=== PATIENT | male | born 1955 | race Caucasian/White ===

== ENCOUNTER 2020-05-12 09:17 | Outpatient (REF) | payer OTHER, SELFPAY ==
[2020-05-12 10:10] LABS: MANUAL DIFF FLAG NO
[2020-05-12 10:32] LABS: Basophils Absolute Auto 0.1 X10*3/uL (0.0-0.2); Basophils Percent Auto 0.6 % (0-2); Eosinophils Absolute Auto 0.2 X10*3/uL (0.0-0.4); Eosinophils Percent Auto 2.1 % (0-4); Hematocrit 39.5 % (42-52); Hemoglobin 13.6 g/dl (14.0-18.0); Imm Gran Abs Auto 0.04 X10*3/uL (0.00-0.03); Imm Gran Pct Auto 0.4 % (0.0-0.4); Lymphocytes Absolute Auto 2.7 X10*3/uL (1.2-4.9); Lymphocytes Percent Auto 27.6 % (20-40); Mean Corpuscular HGB Conc 34.4 g/dl (31.0-36.0); Mean Corpuscular Hemoglobin 31.3 pg (27.0-33.0); Mean Corpuscular Volume 90.8 fL (80-98); Mean Platelet Volume 10.4 fL (9.4-12.4); Monocytes Percent Auto 9.7 % (2-11); Neutrophils Absolute Auto 5.9 X10*3/uL (2.0-8.3); Neutrophils Percent Auto 59.6 % (45-73); Platelet Count 203 X10*3/uL (160-400); Red Blood Count 4.35 X10*6/uL (4.60-5.80); Red Cell Distribution Width 11.6 % (11.0-16.0); White Blood Count 9.8 X10*3/uL (4.8-10.8)
[2020-05-12 11:00] LABS: Estimated Average Glucose 200 mg/dL; Hemoglobin A1c % 8.6 %
[2020-05-12 11:08] LABS: Alanine Aminotransferase 15 U/L (0-40); Albumin Level 4.3 g/dL (3.5-5.0); Alkaline Phosphatase 48 U/L (39-117); Anion Gap 13 (12-20); Aspartate Amino Transferase 17 U/L (5-37); Bilirubin Total 0.8 mg/dL (0.0-1.0); Blood Urea Nitrogen 16 mg/dL (9-16); Carbon Dioxide 28 mmol/L (22-29); Chloride 99 mmol/L (96-108); Cholesterol 123 mg/dL; Estimated Glomerular Filt Rate > 60; Glucose Fasting 170 mg/dL (60-99); HDL Cholesterol 38 mg/dL; LDL Cholesterol Calculated 60 mg/dl; Potassium 4.5 mmol/l (3.3-5.1); Sodium 135 mmol/L (135-145); Total Protein 7.2 g/dL (6.5-8.0); Triglycerides 127 mg/dL
[2020-05-12 11:14] LABS: TSH reflex Free T4 0.62 mIU/mL (0.32-4.0)
== END 2020-05-12 09:18 | disposition home or self-care (01) ==
LOC: HO.10HDL 09:17
PROVIDERS: Visit Provider Internal Medicine
DX: E11.9 Type 2 diabetes mellitus without complications (principal); E78.00 Pure hypercholesterolemia, unspecified; I10 Essential (primary) hypertension; K21.9 Gastro-esophageal reflux disease without esophagitis; E66.9 Obesity, unspecified
CPT/HCPCS: 36415; 80053; 80061; 83036; 84443; 85025

== ENCOUNTER → 2020-06-02 09:55 | Outpatient (BNVA) | payer OTHER, SELFPAY | PROVIDERS: PCP Internal Medicine; Visit Provider Surgery | DX: Z76.89 Persons encountering health services in other specified circumstances (principal) ==

== ENCOUNTER 2020-09-29 09:25 | Outpatient (REF) | payer OTHER, SELFPAY ==
[2020-09-29 10:17] LABS: MANUAL DIFF FLAG NO
[2020-09-29 10:28] LABS: Basophils Absolute Auto 0.1 X10*3/uL (0.0-0.2); Eosinophils Absolute Auto 0.2 X10*3/uL (0.0-0.4); Eosinophils Percent Auto 2.3 % (0-4); Hematocrit 39.9 % (42-52); Hemoglobin 13.8 g/dl (14.0-18.0); Imm Gran Abs Auto 0.04 X10*3/uL (0.00-0.03); Imm Gran Pct Auto 0.4 % (0.0-0.4); Lymphocytes Absolute Auto 2.7 X10*3/uL (1.2-4.9); Lymphocytes Percent Auto 27.7 % (20-40); Mean Corpuscular HGB Conc 34.6 g/dl (31.0-36.0); Mean Corpuscular Hemoglobin 30.8 pg (27.0-33.0); Mean Corpuscular Volume 89.1 fL (80-98); Mean Platelet Volume 10.2 fL (9.4-12.4); Neutrophils Absolute Auto 5.7 X10*3/uL (2.0-8.3); Neutrophils Percent Auto 58.6 % (45-73); Platelet Count 212 X10*3/uL (160-400); Red Blood Count 4.48 X10*6/uL (4.60-5.80); Red Cell Distribution Width 11.6 % (11.0-16.0); White Blood Count 9.7 X10*3/uL (4.8-10.8)
[2020-09-29 11:04] LABS: Glucose Urine UA NEG (NEG); Leukocyte Esterase Urine NEG (NEG); Nitrite Urine NEG (NEG); PH 5.5 (5.0-8.0); Urine Blood TRACE (NEG); Urine Ketones NEG (NEG); Urine Protein NEG (NEG-TRACE)
[2020-09-29 11:10] LABS: Appearance Urine CLEAR; Color Urine YELLOW
[2020-09-29 11:19] LABS: Creatinine Urine 118.41 mg/dL; Microalbum/Creatinine Ratio Ur 10.9 ug/mg cr
[2020-09-29 11:33] LABS: TSH reflex Free T4 0.48 uIU/mL (0.32-4.0)
[2020-09-29 11:41] LABS: Alanine Aminotransferase 17 U/L (0-40); Albumin Level 4.5 g/dL (3.5-5.0); Alkaline Phosphatase 49 U/L (39-117); Anion Gap 10 (12-20); Aspartate Amino Transferase 17 U/L (5-37); Bilirubin Total 0.7 mg/dL (0.0-1.0); Blood Urea Nitrogen 17 mg/dL (9-16); Calcium 9.2 mg/dL (8.4-10.2); Carbon Dioxide 30 mmol/L (22-29); Chloride 101 mmol/L (96-108); Cholesterol 138 mg/dL; Estimated Glomerular Filt Rate 56; Glucose Fasting 209 mg/dL (60-99); HDL Cholesterol 38 mg/dL; LDL Cholesterol Calculated 67 mg/dl; Potassium 4.3 mmol/L (3.3-5.1); Sodium 137 mmol/L (135-145); Total Protein 7.3 g/dL (6.5-8.0); Triglycerides 167 mg/dL
[2020-09-29 11:56] LABS: RBC Urine 0-2 /HPF (0); WBC Urine 0 /HPF (0-4)
== END 2020-09-29 09:26 | disposition home or self-care (01) ==
LOC: HO.10HDL 09:25
PROVIDERS: Visit Provider Internal Medicine
DX: E11.9 Type 2 diabetes mellitus without complications (principal); E78.00 Pure hypercholesterolemia, unspecified; I10 Essential (primary) hypertension; K21.9 Gastro-esophageal reflux disease without esophagitis; E66.9 Obesity, unspecified
CPT/HCPCS: 36415; 80053; 80061; 81001; 81003; 82043; 84443; 85025

== ENCOUNTER → 2020-12-19 10:54 | Outpatient (BNVA) | payer OTHER, SELFPAY | PROVIDERS: PCP Internal Medicine; Visit Provider Surgery ==

== ENCOUNTER → 2020-12-22 11:01 | Outpatient (BNVA) | payer OTHER, SELFPAY | PROVIDERS: PCP Internal Medicine; Visit Provider Surgery ==

== ENCOUNTER 2020-12-30 08:18 | Outpatient (REF) | payer OTHER, SELFPAY ==
--- NOTE | ~2020-12-30 | XR_ITS ---
EXAMINATION: RIGHT HIP, RIGHT ELBOW AND RIGHT SHOULDER. CLINICAL INFORMATION: Right hip pain, right elbow pain, and right shoulder pain. COMPARISON: None TECHNIQUE: 2 views right hip. 3 views right elbow. 4 views right shoulder. FINDINGS: RIGHT HIP: The right hip joint space is maintained. There is periarticular osteophytosis. Hypertrophic bony changes are seen along the greater trochanter. No visible acute fracture or dislocation seen. The soft tissues are normal. RIGHT ELBOW: The joint space is maintained normally. There is a moderate enthesophyte along the lateral epicondyle. No loose bodies, bony erosive changes, acute fracture or dislocation seen. RIGHT SHOULDER: There is decrease in right AC joint and right glenohumeral joint space with periarticular spurring. No visible acute fracture, dislocation or subluxation seen. The soft tissues are normal. XR/XR shoulder RT min 2V IMPRESSION: No acute fracture or dislocation of the right hip. Hypertrophic bony changes/enthesophytes along the right greater trochanter and lateral acetabulum. Right lateral epicondyle enthesophyte likely previous injury. No acute fracture or dislocation in right elbow. 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 No visible acute fracture or dislocation.
--- NOTE | ~2020-12-30 | XR_ITS ---
EXAMINATION: RIGHT HIP, RIGHT ELBOW AND RIGHT SHOULDER. CLINICAL INFORMATION: Right hip pain, right elbow pain, and right shoulder pain. COMPARISON: None TECHNIQUE: 2 views right hip. 3 views right elbow. 4 views right shoulder. FINDINGS: RIGHT HIP: The right hip joint space is maintained. There is periarticular osteophytosis. Hypertrophic bony changes are seen along the greater trochanter. No visible acute fracture or dislocation seen. The soft tissues are normal. RIGHT ELBOW: The joint space is maintained normally. There is a moderate enthesophyte along the lateral epicondyle. No loose bodies, bony erosive changes, acute fracture or dislocation seen. RIGHT SHOULDER: There is decrease in right AC joint and right glenohumeral joint space with periarticular spurring. No visible acute fracture, dislocation or subluxation seen. The soft tissues are normal. XR/XR elbow RT min 3V IMPRESSION: No acute fracture or dislocation of the right hip. Hypertrophic bony changes/enthesophytes along the right greater trochanter and lateral acetabulum. Right lateral epicondyle enthesophyte likely previous injury. No acute fracture or dislocation in right elbow. 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 No visible acute fracture or dislocation.
--- NOTE | ~2020-12-30 | XR_ITS ---
EXAMINATION: RIGHT HIP, RIGHT ELBOW AND RIGHT SHOULDER. CLINICAL INFORMATION: Right hip pain, right elbow pain, and right shoulder pain. COMPARISON: None TECHNIQUE: 2 views right hip. 3 views right elbow. 4 views right shoulder. FINDINGS: RIGHT HIP: The right hip joint space is maintained. There is periarticular osteophytosis. Hypertrophic bony changes are seen along the greater trochanter. No visible acute fracture or dislocation seen. The soft tissues are normal. RIGHT ELBOW: The joint space is maintained normally. There is a moderate enthesophyte along the lateral epicondyle. No loose bodies, bony erosive changes, acute fracture or dislocation seen. RIGHT SHOULDER: There is decrease in right AC joint and right glenohumeral joint space with periarticular spurring. No visible acute fracture, dislocation or subluxation seen. The soft tissues are normal. XR/XR hip RT min 2V IMPRESSION: No acute fracture or dislocation of the right hip. Hypertrophic bony changes/enthesophytes along the right greater trochanter and lateral acetabulum. Right lateral epicondyle enthesophyte likely previous injury. No acute fracture or dislocation in right elbow. 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 No visible acute fracture or dislocation.
[2020-12-30 10:19] LABS: MANUAL DIFF FLAG NO
[2020-12-30 10:28] LABS: Basophils Absolute Auto 0.1 X10*3/uL (0.0-0.2); Basophils Percent Auto 0.8 % (0-2); Eosinophils Absolute Auto 0.3 X10*3/uL (0.0-0.4); Eosinophils Percent Auto 3.2 % (0-4); Hematocrit 36.6 % (42-52); Hemoglobin 12.3 g/dl (14.0-18.0); Imm Gran Abs Auto 0.03 X10*3/uL (0.00-0.03); Imm Gran Pct Auto 0.4 % (0.0-0.4); Lymphocytes Absolute Auto 2.7 X10*3/uL (1.2-4.9); Mean Corpuscular HGB Conc 33.6 g/dl (31.0-36.0); Mean Corpuscular Hemoglobin 30.8 pg (27.0-33.0); Mean Corpuscular Volume 91.5 fL (80-98); Mean Platelet Volume 10.5 fL (9.4-12.4); Monocytes Absolute Auto 0.8 X10*3/uL (0.1-1.2); Neutrophils Absolute Auto 4.6 X10*3/uL (2.0-8.3); Neutrophils Percent Auto 54.6 % (45-73); Platelet Count 199 X10*3/uL (160-400); Red Cell Distribution Width 11.9 % (11.0-16.0); White Blood Count 8.5 X10*3/uL (4.8-10.8)
[2020-12-30 10:57] LABS: Alanine Aminotransferase 19 U/L (0-40); Albumin Level 4.4 g/dL (3.5-5.0); Alkaline Phosphatase 51 U/L (39-117); Anion Gap 13 (12-20); Aspartate Amino Transferase 19 U/L (5-37); Bilirubin Total 0.3 mg/dL (0.0-1.0); Blood Urea Nitrogen 13 mg/dL (9-16); Calcium 9.5 mg/dL (8.4-10.2); Carbon Dioxide 26 mmol/L (22-29); Chloride 104 mmol/L (96-108); Cholesterol 137 mg/dL; Estimated Glomerular Filt Rate > 60; Glucose Fasting 188 mg/dL (60-99); HDL Cholesterol 40 mg/dL; LDL Cholesterol Calculated 75 mg/dl; Potassium 4.6 mmol/L (3.3-5.1); Sodium 138 mmol/L (135-145); Total Protein 7.1 g/dL (6.5-8.0); Triglycerides 112 mg/dL
[2020-12-30 11:18] LABS: TSH reflex Free T4 0.51 uIU/mL (0.32-4.0)
[2020-12-30 13:46] LABS: Glucose Urine UA NEG (NEG); Leukocyte Esterase Urine NEG (NEG); Nitrite Urine NEG (NEG); PH 5.5 (5.0-8.0); Urine Blood NEG (NEG); Urine Ketones NEG (NEG); Urine Protein NEG (NEG-TRACE)
[2020-12-30 13:53] LABS: Creatinine Urine 59.94 mg/dL; Microalbumin Urine < 5.0 mg/L
[2020-12-30 13:59] LABS: Appearance Urine CLEAR; Color Urine YELLOW
== END 2020-12-30 08:19 | disposition home or self-care (01) ==
LOC: HO.10HDL 08:18
PROVIDERS: PCP Internal Medicine; Visit Provider Internal Medicine
DX: M25.551 Pain in right hip (principal); M25.521 Pain in right elbow; M25.511 Pain in right shoulder; E11.9 Type 2 diabetes mellitus without complications; E78.00 Pure hypercholesterolemia, unspecified; I10 Essential (primary) hypertension; K21.9 Gastro-esophageal reflux disease without esophagitis; E66.9 Obesity, unspecified
CPT/HCPCS: 36415; 73030; 73080; 73502; 80053; 80061; 81003; 82043; 84443; 85025

== ENCOUNTER 2021-01-06 07:09 | Day surgery (SDC) | payer OTHER, SELFPAY ==
[2020-12-30 13:24] VITALS: BMI 29.7
--- NOTE | 2021-01-06 07:26 | P.CONAN_ITS ---
COUNT INCLUDES THE [facility] Active Problems Active Problems: All Active Problems (Updated 12/30/20 @ 13:24 by Mandy banegas) Annual physical exam (Acute) Overweight (BMI 25.0-29.9) (Acute) Family history of ovarian cancer (Acute) History of adenomatous polyp of colon (Acute) Tubular adenoma of colon (Acute) Hip pain (Acute) Elbow pain (Acute) Shoulder pain (Acute) Obesity (BMI 30-39.9) (Acute) Erectile dysfunction (Acute) Gall bladder stones (Acute) GERD without esophagitis (Acute) Pure hypercholesterolemia (Acute) Benign essential hypertension (Acute) Type 2 diabetes mellitus without complication, with no history of insulin use (Acute) Past Medical History Medical History (Updated 12/30/20 @ 13:24 by Mandy Owen) Benign essential hypertension Elbow pain Erectile dysfunction Family history of ovarian cancer Gall bladder stones GERD without esophagitis Hip pain History of adenomatous polyp of colon History of anxiety History of panic attacks Obesity (BMI 30-39.9) Overweight (BMI 25.0-29.9) Pure hypercholesterolemia Shoulder pain Tubular adenoma of colon Type 2 diabetes mellitus without complication, with no history of insulin use Family History Family History Father Cirrhosis Cancer Mother Ovarian cancer Surgical History Surgical History (Updated 12/30/20 @ 13:24 by Mandy Owen) History of bilateral cataract extraction History of colonoscopy History of shoulder surgery Social History Social History Housing: House Are you a primary career representative to a significant other at home: No Do you presently have visiting nurse or other home services: No Alcohol intake: current Alcohol intake frequency: holidays/special occasions only Alcohol type: beer Patient Tobacco Use Status: Never used Tobacco Second Hand Smoke Exposure: No Use of substances other than those prescribed or required for medical reasons: No Have you been hit, kicked, punched, or otherwise hurt by someone within the past year? 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 [employer] Allergies Allergy/AdvReac Type Severity Reaction Status Date / Time morphine [MORPHINE] AdvReac Intermediate NAUSEA Verified 12/29/20 09:32 lisinopril [LISINOPRIL] AdvReac Mild COUGH Verified 12/29/20 09:32 metformin [Glucophage] AdvReac Unknown Diarrhea Verified 01/06/21 07:19 Home Medications Medication Instructions Recorded Confirmed Last Taken Type glyburide 5 mg tablet 5 mg PO BID 05/17/20 12/30/20 Unknown History losartan 100 1 tab PO DAILY 05/17/20 12/30/20 Unknown History mg-hydrochlorothiazide 12.5 mg tablet metformin 500 mg tablet 1,000 mg PO BID tab 05/17/20 01/06/21 01/05/21 08:00 History rosuvastatin 10 mg tablet 10 mg PO BEDTIME 05/17/20 12/30/20 Unknown History Exam Exam Date and Time: January 06, 2021 0726 Height,Weight and Vital Signs: Height 5 ft 7 in Weight 86.183 kg Airway Mallampati Class: II TM Dist: >3cm Neck ROM: Full Heart: rrr Lungs: cta Assessment and Plan Assessment Anesthesia Assessment: Anesthesia Plan Discussed and Chart Reviewed Final Anesthetic Review NPO: Yes ASA Class: III Final Preanesthetic Review: No Changes in Pt Med Stat and Consent Obtained/Reviewed Patient Risk: Intermediate Procedure Risk: Intermediate Anesthetic Plan Anesthetic Plan: MAC: Disposition: Standard PACU
[2021-01-06 07:33] VITALS: BP 185/83; PULSE 82; RESP 16; TEMP 36.4; O2SAT 98
[2021-01-06] MEDS: Lactated Ringers 1,000 ML 50 ML IVCONT (07:55)
--- NOTE | 2021-01-06 08:09 | MHC.SHP ---
Pre-Procedural Eval Section A Date of Service: 01/06/21 Section B Chief Complaint: History of adenomatous polyp of colon Allergies: Allergies Allergy/AdvReac Type Severity Reaction Status Date / Time morphine [MORPHINE] AdvReac Intermediate NAUSEA Verified 12/29/20 09:32 lisinopril [LISINOPRIL] AdvReac Mild COUGH Verified 12/29/20 09:32 metformin [Glucophage] AdvReac Unknown Diarrhea Verified 01/06/21 07:19 Plan I have reviewed the history and physical and performed a pertinent physical examination on my patient. No changes have occurred unless specified.
[2021-01-06 08:34] LABS: Glucose, Whole Blood 111 mg/dL (60-115)
--- NOTE | 2021-01-06 08:34 | W.PM.OPN ---
Operative Note Operative Note Date of Service: 01/06/21 Narrative: Preop diagnosis: History of tubular adenomas Postop diagnose: Small polyp, about 2-3 mm in the right colon Procedure: Colonoscopy with polypectomy using cold snare Surgeon: Mitesh Nino MD 66-year-old male with a history of multiple tubular adenomas in the past, here for follow-up colonoscopy. He understood the technique of the procedure. He was aware of the risks, benefits, and alternatives. He was brought to the operating room and placed in left lateral decubitus position under monitored anesthesia care. A surgical time-out was done. Full digital rectal was done and there was no palpable internal lesions but the tip of the Olympus colonoscope was gently introduced through the anal orifice and advanced with insufflation all the way to the cecum. The cecum was intubated. The cecum was identified by visualization of the ileocecal valve as well as the appendiceal orifice. The cecal mucosa was unremarkable. The scope was gradually withdrawn with careful examination of the entire colonic mucosa being done with scope withdrawal. The patient had good bowel prep so it was unlikely that any lesion may have been missed. In the proximal right colon, there was note of a small polyp about 2-3 mm size. There was removed using a cold forceps. We continued to withdraw the scope all the way to the rectum. There were no lesions seen. There were no polyps that were seen. The anal canal and anal shelf for unremarkable. The scope was then withdrawn completely with desufflation The patient tolerated procedure well. There were no complication noted. We will await for the path report for this small polyp. In view of his multiple polyps in the past, I would likely recommend another colonoscopy within 5 years.
[2021-01-06 08:35] VITALS: BP 100/60; PULSE 70; RESP 16; TEMP 36.3; O2SAT 95
--- NOTE | 2021-01-06 08:37 | P.BOP_ITS ---
Brief Operative Note Date of Service: 01/06/21 Pre-op diagnosis: Preop diagnosis: History of tubular adenomas Post-op diagnosis: other (Small polyp in the right colon) Procedure: Colonoscopy with polypectomy using cold forceps Surgeon: Mitesh Nino MD Anesthesia: MAC Was an Gravel Machine Operator used for this Procedure?: No Estimated blood loss (mL): 0 Pathology: other (Small polyp) Condition: stable Disposition: PACU
[2021-01-06 08:50] VITALS: BP 129/70; PULSE 75; RESP 16; TEMP 36.3; O2SAT 98
== END 2021-01-06 09:00 | disposition home or self-care (01) ==
PROVIDERS: PCP Internal Medicine; Visit Provider Surgery
PROC: 0DJD8ZZ Inspection of Lower Intestinal Tract, Via Natural or Artificial Opening Endoscopic (ICD-10-PCS; CPT 45378; principal; 2021-01-06 08:30)
DX: Z12.11 Encounter for screening for malignant neoplasm of colon (principal); Z86.010 Personal history of colon polyps; K21.9 Gastro-esophageal reflux disease without esophagitis; I10 Essential (primary) hypertension; E11.9 Type 2 diabetes mellitus without complications; Z79.84 Long term (current) use of oral hypoglycemic drugs; Z79.899 Other long term (current) drug therapy; Z88.8 Allergy status to other drugs, medicaments and biological substances; Z80.41 Family history of malignant neoplasm of ovary
CPT/HCPCS: 45380; 82947; 88305

== ENCOUNTER → 2021-01-18 11:44 | Outpatient (BNVA) | payer OTHER, SELFPAY | PROVIDERS: PCP Internal Medicine; Visit Provider Surgery ==

== ENCOUNTER → 2021-01-23 13:44 | Outpatient (BNVA) | payer OTHER, SELFPAY | PROVIDERS: PCP Internal Medicine; Referring Provider Internal Medicine; Visit Provider Surgery ==

== ENCOUNTER 2021-05-01 11:15 | Outpatient (REF) | payer OTHER, SELFPAY ==
[2021-05-01 13:40] LABS: MANUAL DIFF FLAG NO
[2021-05-01 13:49] LABS: Basophils Absolute Auto 0.1 X10*3/uL (0.0-0.2); Basophils Percent Auto 0.7 % (0-2); Eosinophils Absolute Auto 0.1 X10*3/uL (0.0-0.4); Eosinophils Percent Auto 1.7 % (0-4); Hematocrit 38.9 % (42-52); Imm Gran Abs Auto 0.02 X10*3/uL (0.00-0.03); Imm Gran Pct Auto 0.3 % (0.0-0.4); Lymphocytes Absolute Auto 2.7 X10*3/uL (1.2-4.9); Lymphocytes Percent Auto 35.8 % (20-40); Mean Corpuscular HGB Conc 33.4 g/dl (31.0-36.0); Mean Corpuscular Hemoglobin 30.1 pg (27.0-33.0); Mean Platelet Volume 10.7 fL (9.4-12.4); Monocytes Absolute Auto 0.8 X10*3/uL (0.1-1.2); Monocytes Percent Auto 10.8 % (2-11); Neutrophils Absolute Auto 3.8 X10*3/uL (2.0-8.3); Neutrophils Percent Auto 50.7 % (45-73); Platelet Count 221 X10*3/uL (160-400); Red Blood Count 4.32 X10*6/uL (4.60-5.80); Red Cell Distribution Width 11.9 % (11.0-16.0); White Blood Count 7.4 X10*3/uL (4.8-10.8)
[2021-05-01 14:01] LABS: Estimated Average Glucose 189 mg/dL; Hemoglobin A1c % 8.2 %
[2021-05-01 14:03] LABS: Alanine Aminotransferase 17 U/L (0-40); Albumin Level 4.4 g/dL (3.5-5.0); Alkaline Phosphatase 46 U/L (39-117); Anion Gap 13 (12-20); Aspartate Amino Transferase 24 U/L (5-37); Bilirubin Total 0.6 mg/dL (0.0-1.0); Blood Urea Nitrogen 15 mg/dL (9-16); Calcium 9.8 mg/dL (8.4-10.2); Carbon Dioxide 28 mmol/L (22-29); Chloride 101 mmol/L (96-108); Cholesterol 135 mg/dL; Estimated Glomerular Filt Rate 55; Glucose Fasting 153 mg/dL (60-99); HDL Cholesterol 41 mg/dL; LDL Cholesterol Calculated 76 mg/dl; Potassium 4.8 mmol/L (3.3-5.1); Sodium 137 mmol/L (135-145); Total Protein 7.4 g/dL (6.5-8.0); Triglycerides 92 mg/dL
[2021-05-01 14:24] LABS: Prostate Specific Antigen 0.94 ng/mL (<0.05-4.0); TSH reflex Free T4 0.82 uIU/mL (0.32-4.0)
== END 2021-05-01 11:16 | disposition home or self-care (01) ==
LOC: HO.10HDL 11:15
PROVIDERS: Visit Provider Internal Medicine
DX: Z00.00 Encounter for general adult medical examination without abnormal findings (principal); Z12.5 Encounter for screening for malignant neoplasm of prostate; E66.3 Overweight; E78.00 Pure hypercholesterolemia, unspecified; N40.0 Benign prostatic hyperplasia without lower urinary tract symptoms; E11.9 Type 2 diabetes mellitus without complications; I10 Essential (primary) hypertension; K80.20 Calculus of gallbladder without cholecystitis without obstruction; K21.9 Gastro-esophageal reflux disease without esophagitis
CPT/HCPCS: 36415; 80053; 80061; 83036; 84153; 84443; 85025

== ENCOUNTER 2021-11-06 08:25 | Outpatient (REF) | payer OTHER, SELFPAY ==
[2021-11-06 10:52] LABS: MANUAL DIFF FLAG NO
[2021-11-06 11:09] LABS: Basophils Absolute Auto 0.1 X10*3/uL (0.0-0.2); Basophils Percent Auto 0.7 % (0-2); Eosinophils Absolute Auto 0.2 X10*3/uL (0.0-0.4); Eosinophils Percent Auto 1.9 % (0-4); Hematocrit 39.2 % (42.0-52.0); Hemoglobin 13.3 g/dl (14.0-18.0); Imm Gran Abs Auto 0.04 X10*3/uL (0.00-0.03); Imm Gran Pct Auto 0.4 % (0.0-0.4); Lymphocytes Absolute Auto 2.8 X10*3/uL (1.2-4.9); Lymphocytes Percent Auto 30.8 % (20-40); Mean Corpuscular HGB Conc 33.9 g/dl (31.0-36.0); Mean Corpuscular Hemoglobin 30.6 pg (27.0-33.0); Mean Corpuscular Volume 90.1 fL (80.0-98.0); Mean Platelet Volume 10.9 fL (9.4-12.4); Monocytes Absolute Auto 0.9 X10*3/uL (0.1-1.2); Neutrophils Absolute Auto 5.1 x10*3/uL (2.0-8.3); Neutrophils Percent Auto 56.2 % (45-73); Platelet Count 197 X10*3/uL (160-400); Red Blood Count 4.35 X10*6/uL (4.60-5.80); Red Cell Distribution Width 11.6 % (11.0-16.0); White Blood Count 9.1 X10*3/uL (4.8-10.8)
[2021-11-06 11:13] LABS: Appearance Urine CLEAR; Color Urine YELLOW; Glucose Urine UA >=1000 MG/DL (NEG); Leukocyte Esterase Urine NEG (NEG); Nitrite Urine NEG (NEG); Specific Gravity - Urine 1.015 (1.005-1.025); UACC Culture Trigger NO; Urine Blood TRACE (NEG); Urine Ketones NEG (NEG); Urine Protein NEG (NEG-TRACE)
[2021-11-06 11:17] LABS: Alanine Aminotransferase 17 U/L (0-40); Albumin Level 4.2 g/dL (3.5-5.0); Alkaline Phosphatase 51 U/L (39-117); Anion Gap 11 (12-20); Aspartate Amino Transferase 16 U/L (5-37); Bilirubin Total 0.7 mg/dL (0.0-1.0); Blood Urea Nitrogen 15 mg/dL (9-16); Calcium 9.8 mg/dL (8.4-10.2); Carbon Dioxide 29 mmol/L (22-29); Chloride 99 mmol/L (96-108); Cholesterol 132 mg/dL; Estimated Glomerular Filt Rate 51; Glucose Fasting 335 mg/dL (60-99); HDL Cholesterol 48 mg/dL; LDL Cholesterol Calculated 65 mg/dl; Potassium 4.9 mmol/L (3.3-5.1); Sodium 134 mmol/L (135-145); Total Protein 7.2 g/dL (6.5-8.0); Triglycerides 97 mg/dL
[2021-11-06 11:19] LABS: Estimated Average Glucose 289 mg/dL; Hemoglobin A1c % 11.7 %
[2021-11-06 11:32] LABS: RBC Urine 0 /HPF (0); WBC Urine 0 /HPF (0-4)
[2021-11-06 11:39] LABS: TSH reflex Free T4 0.85 uIU/mL (0.32-4.0); Vitamin D 25-OH Total 30.1 ng/mL (>30)
[2021-11-06 12:33] LABS: Creatinine Urine 75.62 mg/dL; Microalbum/Creatinine Ratio Ur 11.9 ug/mg cr
== END 2021-11-06 08:26 | disposition home or self-care (01) ==
LOC: HO.10HDL 08:25
PROVIDERS: Visit Provider Internal Medicine
DX: I10 Essential (primary) hypertension (principal); E55.9 Vitamin D deficiency, unspecified; E11.9 Type 2 diabetes mellitus without complications; K21.9 Gastro-esophageal reflux disease without esophagitis; E78.00 Pure hypercholesterolemia, unspecified
CPT/HCPCS: 36415; 80053; 80061; 81001; 82043; 82306; 83036; 84443; 85025

== ENCOUNTER 2021-12-29 09:27 | Outpatient (REF) | payer OTHER, SELFPAY ==
[2021-12-29 11:10] LABS: MANUAL DIFF FLAG NO
[2021-12-29 11:12] LABS: Appearance Urine CLEAR; Color Urine YELLOW; Glucose Urine UA NEG (NEG); Leukocyte Esterase Urine NEG (NEG); Nitrite Urine NEG (NEG); Specific Gravity - Urine 1.015 (1.005-1.025); UACC Culture Trigger NO; Urine Blood TRACE (NEG); Urine Ketones NEG (NEG); Urine Protein NEG (NEG-TRACE)
[2021-12-29 11:13] LABS: Basophils Absolute Auto 0.1 X10*3/uL (0.0-0.2); Basophils Percent Auto 0.8 % (0-2); Eosinophils Absolute Auto 0.2 X10*3/uL (0.0-0.4); Eosinophils Percent Auto 2.1 % (0-4); Hematocrit 37.1 % (42.0-52.0); Hemoglobin 12.8 g/dl (14.0-18.0); Imm Gran Abs Auto 0.03 X10*3/uL (0.00-0.03); Imm Gran Pct Auto 0.4 % (0.0-0.4); Lymphocytes Absolute Auto 2.7 X10*3/uL (1.2-4.9); Lymphocytes Percent Auto 33.3 % (20-40); Mean Corpuscular HGB Conc 34.5 g/dl (31.0-36.0); Mean Corpuscular Hemoglobin 31.1 pg (27.0-33.0); Mean Corpuscular Volume 90.3 fL (80.0-98.0); Mean Platelet Volume 9.8 fL (9.4-12.4); Monocytes Absolute Auto 0.9 X10*3/uL (0.1-1.2); Monocytes Percent Auto 10.3 % (2-11); Neutrophils Absolute Auto 4.4 x10*3/uL (2.0-8.3); Neutrophils Percent Auto 53.1 % (45-73); Platelet Count 214 X10*3/uL (160-400); Red Blood Count 4.11 X10*6/uL (4.60-5.80); Red Cell Distribution Width 11.9 % (11.0-16.0); White Blood Count 8.2 X10*3/uL (4.8-10.8)
[2021-12-29 11:35] LABS: Estimated Average Glucose 209 mg/dL; Hemoglobin A1c % 8.9 %
[2021-12-29 11:41] LABS: Alanine Aminotransferase 14 U/L (0-40); Albumin Level 4.3 g/dL (3.5-5.0); Alkaline Phosphatase 42 U/L (39-117); Anion Gap 11 (12-20); Aspartate Amino Transferase 17 U/L (5-37); Bilirubin Total 0.6 mg/dL (0.0-1.0); Blood Urea Nitrogen 13 mg/dL (9-16); Calcium 9.3 mg/dL (8.4-10.2); Carbon Dioxide 28 mmol/L (22-29); Chloride 104 mmol/L (96-108); Cholesterol 108 mg/dL; Estimated Glomerular Filt Rate > 60; Glucose Fasting 188 mg/dL (60-99); HDL Cholesterol 43 mg/dL; LDL Cholesterol Calculated 55 mg/dl; Potassium 4.7 mmol/L (3.3-5.1); Sodium 138 mmol/L (135-145); Total Protein 7.2 g/dL (6.5-8.0); Triglycerides 54 mg/dL
[2021-12-29 11:51] LABS: Mucus Urine TRACE /LPF; RBC Urine 0-2 /HPF (0); WBC Urine 0-2 /HPF (0-4)
[2021-12-29 11:59] LABS: Creatinine Urine 96.55 mg/dL; Microalbum/Creatinine Ratio Ur 7.2 ug/mg cr
[2021-12-29 12:03] LABS: TSH reflex Free T4 0.49 uIU/mL (0.32-4.0)
== END 2021-12-29 09:28 | disposition home or self-care (01) ==
LOC: HO.10HDL 09:27
PROVIDERS: Visit Provider Internal Medicine
DX: I10 Essential (primary) hypertension (principal); E55.9 Vitamin D deficiency, unspecified; E78.00 Pure hypercholesterolemia, unspecified; E11.9 Type 2 diabetes mellitus without complications
CPT/HCPCS: 36415; 80053; 80061; 81001; 82043; 82306; 83036; 84443; 85025

== ENCOUNTER 2022-04-02 08:58 | Outpatient (REF) | payer OTHER, SELFPAY ==
[2022-04-02 10:49] LABS: Estimated Average Glucose 166 mg/dL; Hemoglobin A1c % 7.4 %
[2022-04-02 11:30] LABS: Alanine Aminotransferase 18 U/L (0-40); Albumin Level 4.5 g/dL (3.5-5.0); Alkaline Phosphatase 43 U/L (39-117); Anion Gap 17 (12-20); Aspartate Amino Transferase 22 U/L (5-37); Bilirubin Total 0.6 mg/dL (0.0-1.0); Blood Urea Nitrogen 18 mg/dL (9-16); Calcium 9.9 mg/dL (8.4-10.2); Carbon Dioxide 27 mmol/L (22-29); Chloride 101 mmol/L (96-108); Cholesterol 142 mg/dL; Estimated Glomerular Filt Rate 54; Glucose Fasting 142 mg/dL (60-99); HDL Cholesterol 43 mg/dL; LDL Cholesterol Calculated 77 mg/dl; Potassium 5.6 mmol/L (3.3-5.1); Sodium 139 mmol/L (135-145); Total Protein 7.7 g/dL (6.5-8.0); Triglycerides 113 mg/dL
[2022-04-02 16:29] LABS: Appearance Urine Clear; Color Urine Yellow; Glucose Urine UA Negative (Negative); Leukocyte Esterase Urine Negative (Negative); Nitrite Urine Negative (Negative); Specific Gravity - Urine 1.015 (1.005-1.025); Urine Blood Negative (Negative); Urine Ketones Negative (Negative); Urine Protein Negative (Neg-Trace)
[2022-04-02 16:54] LABS: Creatinine Urine 92.29 mg/dL; Microalbum/Creatinine Ratio Ur 23.8 ug/mg cr
== END 2022-04-02 08:59 | disposition home or self-care (01) ==
LOC: HO.10HDL 08:58
PROVIDERS: Visit Provider Internal Medicine
DX: E78.00 Pure hypercholesterolemia, unspecified (principal); E11.9 Type 2 diabetes mellitus without complications
CPT/HCPCS: 36415; 80053; 80061; 81003; 82043; 83036

== ENCOUNTER 2022-06-18 08:49 | Outpatient (REF) | payer OTHER, SELFPAY ==
[2022-06-18 10:58] LABS: Appearance Urine Clear; Color Urine Yellow; Glucose Urine UA Negative (Negative); Leukocyte Esterase Urine Negative (Negative); Nitrite Urine Negative (Negative); Urine Blood Negative (Negative); Urine Ketones Negative (Negative); Urine Protein Negative (Neg-Trace)
[2022-06-18 12:08] LABS: Creatinine Urine 60.04 mg/dL; Microalbum/Creatinine Ratio Ur 8.3 ug/mg cr
== END 2022-06-18 08:50 | disposition home or self-care (01) ==
LOC: HO.10HDL 08:49
PROVIDERS: Visit Provider Internal Medicine
DX: Z00.00 Encounter for general adult medical examination without abnormal findings (principal); E11.9 Type 2 diabetes mellitus without complications; I10 Essential (primary) hypertension
CPT/HCPCS: 81003; 82043

== ENCOUNTER 2022-09-17 10:43 | Outpatient (REF) | payer OTHER, SELFPAY ==
[2022-09-17 13:45] LABS: Estimated Average Glucose 177 mg/dL; Hemoglobin A1c % 7.8 %
[2022-09-17 13:51] LABS: Alanine Aminotransferase 17 U/L (0-40); Albumin Level 4.4 g/dL (3.5-5.0); Alkaline Phosphatase 39 U/L (39-117); Anion Gap 16 (12-20); Aspartate Amino Transferase 20 U/L (5-37); Bilirubin Total 0.8 mg/dL (0.0-1.0); Blood Urea Nitrogen 16 mg/dL (9-16); Calcium 9.6 mg/dL (8.4-10.2); Carbon Dioxide 26 mmol/L (22-29); Chloride 103 mmol/L (96-108); Cholesterol 142 mg/dL; Estimated Glomerular Filt Rate > 60; Glucose Fasting 173 mg/dL (60-99); HDL Cholesterol 43 mg/dL; LDL Cholesterol Calculated 78 mg/dl; Potassium 4.6 mmol/L (3.3-5.1); Sodium 140 mmol/L (135-145); Total Protein 7.1 g/dL (6.5-8.0); Triglycerides 108 mg/dL
== END 2022-09-17 10:44 | disposition home or self-care (01) ==
LOC: HO.10HDL 10:43
PROVIDERS: Visit Provider Nurse Practitioner Family
DX: E78.00 Pure hypercholesterolemia, unspecified (principal); E11.9 Type 2 diabetes mellitus without complications
CPT/HCPCS: 36415; 80053; 80061; 83036

== ENCOUNTER 2022-09-17 13:23 | Outpatient (REF) | payer OTHER, SELFPAY ==
[2022-09-17 14:08] LABS: Appearance Urine Clear; Color Urine Yellow; Glucose Urine UA Negative (Negative); Leukocyte Esterase Urine Negative (Negative); Nitrite Urine Negative (Negative); PH 5.5 (5.0-9.0); Specific Gravity - Urine 1.015 (1.005-1.025); Urine Blood Negative (Negative); Urine Ketones Negative (Negative); Urine Protein Negative (Neg-Trace)
== END 2022-09-17 13:24 | disposition home or self-care (01) ==
LOC: HO.10HDLNP 13:23
PROVIDERS: Visit Provider Internal Medicine
DX: I10 Essential (primary) hypertension (principal)
CPT/HCPCS: 81003

== ENCOUNTER 2023-02-05 08:27 | Outpatient (REF) | payer OTHER, SELFPAY ==
[2023-02-05 10:36] LABS: MANUAL DIFF FLAG NO
[2023-02-05 10:48] LABS: Basophils Absolute Auto 0.1 X10*3/uL (0.0-0.2); Eosinophils Absolute Auto 0.2 X10*3/uL (0.0-0.4); Eosinophils Percent Auto 2.7 % (0-4); Hematocrit 39.4 % (42.0-52.0); Hemoglobin 13.4 g/dl (14.0-18.0); Imm Gran Abs Auto 0.03 X10*3/uL (0.00-0.03); Imm Gran Pct Auto 0.3 % (0.0-0.4); Lymphocytes Absolute Auto 3.1 X10*3/uL (1.2-4.9); Lymphocytes Percent Auto 34.7 % (20-40); Mean Corpuscular Hemoglobin 30.7 pg (27.0-33.0); Mean Corpuscular Volume 90.4 fL (80.0-98.0); Mean Platelet Volume 10.2 fL (9.4-12.4); Monocytes Absolute Auto 0.9 X10*3/uL (0.1-1.2); Monocytes Percent Auto 10.3 % (2-11); Neutrophils Absolute Auto 4.6 x10*3/uL (2.0-8.3); Platelet Count 216 X10*3/uL (160-400); Red Blood Count 4.36 X10*6/uL (4.60-5.80); Red Cell Distribution Width 11.5 % (11.0-16.0)
[2023-02-05 10:49] LABS: Appearance Urine Clear; Color Urine Yellow; Glucose Urine UA 100 mg/dL (Negative); Leukocyte Esterase Urine Negative (Negative); Nitrite Urine Negative (Negative); PH 5.5 (5.0-9.0); Urine Blood Negative (Negative); Urine Ketones Negative (Negative); Urine Protein Negative (Neg-Trace)
[2023-02-05 11:17] LABS: Estimated Average Glucose 169 mg/dL; Hemoglobin A1c % 7.5 %
[2023-02-05 11:18] LABS: Alanine Aminotransferase 18 U/L (0-40); Albumin Level 4.4 g/dL (3.5-5.0); Alkaline Phosphatase 46 U/L (39-117); Anion Gap 10 (12-20); Aspartate Amino Transferase 18 U/L (5-37); Bilirubin Total 0.6 mg/dL (0.0-1.0); Blood Urea Nitrogen 12 mg/dL (9-16); Calcium 9.9 mg/dL (8.4-10.2); Carbon Dioxide 30 mmol/L (22-29); Chloride 101 mmol/L (96-108); Cholesterol 139 mg/dL; Estimated Glomerular Filt Rate 53; Glucose Fasting 257 mg/dL (60-99); HDL Cholesterol 44 mg/dL; LDL Cholesterol Calculated 74 mg/dl; Potassium 4.7 mmol/L (3.3-5.1); Sodium 136 mmol/L (135-145); TSH reflex Free T4 0.87 uIU/mL (0.32-4.0); Total Protein 7.7 g/dL (6.5-8.0); Triglycerides 107 mg/dL; Vitamin D 25-OH Total 42.5 ng/mL (>30)
[2023-02-05 11:34] LABS: Folate 14.8 ng/mL (> or = 4.0); Vitamin B12 482 pg/mL (200-900)
[2023-02-05 11:37] LABS: Creatinine Urine 72.68 mg/dL
== END 2023-02-05 08:28 | disposition home or self-care (01) ==
LOC: HO.10HDL 08:27
PROVIDERS: Visit Provider Internal Medicine
DX: E55.9 Vitamin D deficiency, unspecified (principal); E53.8 Deficiency of other specified B group vitamins; E11.9 Type 2 diabetes mellitus without complications; I10 Essential (primary) hypertension; E78.00 Pure hypercholesterolemia, unspecified; R30.0 Dysuria
CPT/HCPCS: 36415; 80053; 80061; 81003; 82043; 82306; 82607; 82746; 83036; 84443; 85025

== ENCOUNTER 2023-02-08 10:50 | Outpatient (AMB) | payer OTHER, SELFPAY ==
[2023-02-08 10:52] VITALS: BP 138/80; PULSE 97; O2SAT 96; BMI 29.0
--- NOTE | 2023-02-08 10:52 | A.OFFPC_ITS ---
Vital Signs 02/08/23 10:52 Height 5 ft 7 in Weight 185 lb 6 oz BMI 29.0 BP 138/80 Blood Pressure Location Lt brachial Position Sitting Pulse 97 Pulse Source Pulse Oximeter Pulse Oximetry (%) 96 Oxygen Delivery Method Room Air Intake Visit Reasons: DM, hyperlipidemia Mail List Librarian Required: No Accompanied by: Self / Same As Patient Allergies morphine [MORPHINE] Adverse Reaction (Intermediate, Verified 02/08/23 11:25) NAUSEA lisinopril [LISINOPRIL] Adverse Reaction (Mild, Verified 02/08/23 11:25) COUGH metformin [Glucophage] Adverse Reaction (Unknown, Verified 02/08/23 11:25) Diarrhea Medication List - Last Reconciled 02/08/23 by Jorge Luis Nava MD blood sugar diagnostic (FreeStyle Lite Strips) As directed once a day glyburide 5 mg PO DAILY 90 days losartan-hydrochlorothiazide 100-12.5 mg 1 tab PO DAILY metformin 1,000 mg (2 x 500 mg) PO BID rosuvastatin 10 mg PO DAILY sildenafil (Viagra) 50 mg PO DAILY PRN 90 days sitagliptin phosphate (Januvia) 100 mg PO DAILY Tobacco use date assessed: 02/08/23 Fall risk assessment: No Falls in past year Last assessed Fall Risk: 02/08/23 Dental Screening Dental Screen Date: 02/08/23 Did you have a dental visit in the last 12 months?: Yes Did you have a dental problem in the last 6 months where you did not have access to dental care?: No Was dental information given to patient?: Patient has dentist HPI DM, hyperlipidemia HPI Details Patient comes in today for his follow up visit States that he currently feels okay He denies any headaches or dizziness Denies any chest pains, no SOB No nausea/vomiting, no abdominal pain No change in bowel habits noted Needs his Januvia Rx refilled Had his follow up labs done a few days ago - to discuss his results Adds that he recently had his [facility] Screening Tests done and brought in a co py of his results to go over with [facility] Medical History Benign essential hypertension Elbow pain Erectile dysfunction Family history of ovarian cancer Gall bladder stones GERD without esophagitis Hip pain History of adenomatous polyp of colon History of anxiety History of panic attacks Obesity (BMI 30-39.9) Overweight (BMI 25.0-29.9) Pure hypercholesterolemia Shingles Shoulder pain Tubular adenoma of colon Type 2 diabetes mellitus without complication, with no history of insulin use Surgical History History of bilateral cataract extraction History of colonoscopy History of shoulder surgery Family History Father Cirrhosis Cancer Mother Ovarian cancer Social History Housing: House Are you a primary acute care nurse practitioner to a significant other at home: No Do you presently have visiting nurse or other home services: No Alcohol intake: current Alcohol intake frequency: holidays/special occasions only Alcohol type: beer Patient Tobacco Use Status: Never used Tobacco e-Cigarette/Vaping Use: Never Used Second Hand Smoke Exposure: No service: Yes ([email or web address]) Current occupational status: employed 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 1. Little interest or pleasure in doing things: not at all 2. Feeling down, depressed, or hopeless: not at all 3. Trouble falling or staying asleep, or sleeping too much: not at all 4. Feeling tired or having little energy: not at all 5. Poor appetite or overeating: not at all 6. Feeling bad about yourself - or that you are a failure or have let yourself or your family down: not at all 7. Trouble concentrating on things, such as reading the newspaper or watching television: not at all 8. Moving or speaking so slowly that other people could have noticed. Or the opposite - being so fidgety or restless that you have been moving around a lot more than usual: not at all 9. Thoughts that you would be better off or of hurting yourself in some way: not at all Total score: 0 Depression Screening Interpretation: Negative 69043 - PHQ-9 Billing: Yes Source: Developed by Drs. Armando Hairston, Domenica Hurd, Raul Zamarripa and colleagues, with an educational gillian from [email or web address]. Thrive Questionnaire Date Thrive assessed: 02/08/23 I am a: Patient What is your living situation today?: I have a steady place to live Within the past 12 months, did the food you bought not last and you didn't have the money to get more?: Never true Within the past 12 months, did you worry whether your food would run out before you got money to buy more?: Never true Do you have trouble paying for medicines?: No Do you have trouble getting transportation to medical appointments?: No Do you have trouble paying your heating and electricity bill?: No Do you have trouble taking care of your child, family member or friend?: No Do you have trouble with day-to-day activities such as bathing, preparing meals, shopping, managing finances, etc.?: No Are you currently unemployed and looking for a job?: No Are you interested in more education?: No Please select the resources that you would like help with: None Currently or been in a relationship where the following occur: no concerns reported AUDIT C Alcohol Use Questionnaire (AUDIT-C) 1. How often do you have a drink containing alcohol?: Never 3. How often do you have six or more drinks on one occasion?: Never Total Score: 0 Score Reviewed/Action Taken: Yes BRENNA-7 AMB Questionnaire BRENNA-7 Date BRENNA - 7 assessed: 02/08/23 Feeling nervous, anxious, or on edge: 0 = Not at all Not being able to stop or control worryin = Not at all Worrying too much about different things: 0 = Not at all Trouble relaxin = Not at all Being so restless that it is hard to sit still: 0 = Not at all Becoming easily annoyed or irritable: 0 = Not at all Feeling afraid as if something awful might happen: 0 = Not at all Total BRENNA-7 score (0-4 normal; 5-9 mild; 10-14 moderate; 15-21 severe): 0 Source: Developed by Drs. Armando Hairston, Domenica Hurd, Raul Zamarripa and colleagues, with an educational gillian from [email or web address]. Review of Systems Const Denies chills, Denies fatigue, Denies fever(s) and Denies headache(s) ENT Denies dysphagia, Denies dizziness, Denies otalgia, Denies headache(s), Denies neck pain and Denies sore throat Card Denies chest pain, Denies palpitations and Denies dyspnea Resp Denies cough, Denies dyspnea and Denies wheezing GI Denies abdominal pain, Denies constipation, Denies dysphagia, Denies heartburn, Denies diarrhea, Denies nausea and Denies vomiting Denies dysuria, Denies nocturia and Denies urinary frequency Musc Denies back pain, Reports arthralgias (on and off in the right shoulder, mostly mild), Denies joint swelling and Denies neck pain Neuro Denies dizziness and Denies headache(s) Endo Denies fatigue and Denies palpitations Aller/Immun Denies wheezing Physical exam (Primary Care) Vital Signs: Last Vital Signs Pulse 97 02/08/23 10:52 BP 138/80 02/08/23 10:52 Pulse Ox 96 02/08/23 10:52 Oxygen Delivery Method Room Air 02/08/23 10:52 BMI result Body Mass Index 29.0 Tobacco/Smoking Status: Tobacco use Status Tobacco use date assessed 02/08/23 02/08/23 10:59 Patient Tobacco Use Status Never used Tobacco 02/08/23 10:52 e-Cigarette/Vaping Use Never Used 02/08/23 10:52 PHQ-9: PHQ-9 Score PHQ-9: Total score 0 02/08/23 11:26 Depression Screening Interpretation: Negative Thrive Assessment: Date of Thrive Assessment Date Thrive assessed 02/08/23 02/08/23 10:59 Currently or been in a relationship where the following occur: no concerns reported Const General: no acute distress and alert HENMT Ears: TM's normal bilaterally and EAC's normal Throat: Yes posterior oropharynx normal and Yes tonsils normal (no TP congestion) Neck Neck: Yes no lymphadenopathy and Yes supple Resp Auscultation: clear to auscultation bilaterally, no rales and no wheezes Cardio Rate: regular rate Rhythm: regular rhythm Heart sounds: no murmurs GI Palpation (GI): Soft to palpation and nontender Auscultation: normal bowel sounds Extrem General: Yes no clubbing, cyanosis or edema Results Reviewed Results Reviewed: Laboratory Tests 02/05/23 02/05/23 02/05/23 08:35 08:35 08:35 WBC 9.0 Hgb 13.4 L Hct 39.4 L Plt Count 216 Sodium 136 Potassium 4.7 Creatinine 1.34 Estimated GFR 53 Fasting Glucose 257 H Hemoglobin A1c % Calcium 9.9 AST 18 ALT 18 Triglycerides 107 Cholesterol 139 LDL Cholesterol, Calc 74 HDL Cholesterol 44 Vitamin B12 25-OH Vitamin D Total 42.5 Folate TSH 0.87 Ur Specific [place] 1.010 Urine Protein Negative Urine Glucose (UA) 100 H Urine Blood Negative Microalb/Creat Ratio 02/05/23 02/05/23 02/05/23 08:35 08:35 08:35 WBC Hgb Hct Plt Count Sodium Potassium Creatinine Estimated GFR Fasting Glucose Hemoglobin A1c % 7.5 Calcium AST ALT Triglycerides Cholesterol LDL Cholesterol, Calc HDL Cholesterol Vitamin B12 482 25-OH Vitamin D Total Folate 14.8 TSH Ur Specific [place] Urine Protein Urine Glucose (UA) Urine Blood Microalb/Creat Ratio 11.0 Assessment and Plan Assessment & Plan (1) Pure hypercholesterolemia: Code(s): E78.00 - Pure hypercholesterolemia, unspecified Plan: Results of his labs done a few days ago reviewed and discussed with patient Reinforced low cholesterol diet Continue Rosuvastatin 10 mg once a day Will recheck labs in 4 months for follow-up His [facility] Screening done back in September 2022 revealed NO significant abnormalities - copy of these will be scanned into his chart for future reference (2) Type 2 diabetes mellitus without complication, with no history of insulin use: Code(s): E11.9 - Type 2 diabetes mellitus without complications Plan: HgbA1c was at 7.5% on his labs done a few days ago (was at 7.8% a few months ago) - goal is <7.0% Reinforced diabetic diet Continue Metformin 500 mg 2 tablets BID, Januvia 100 mg QD and Glyburide 5 mg 1/2 tablet (2.5 mg) QD; patient admitted to stopping his Januvia for about a month back in November 2022 as he wanted to see if Januvia was causing his recurrrent right shoulder issues - states that his shoulder pain did not changed while he was off Januvia so he went back on the medication and has been taking it daily since (3) Benign essential hypertension: Code(s): I10 - Essential (primary) hypertension Plan: Reinforced low-sodium diet - goal is systolic BP of at least 120 to 130 mm or less Patient's average blood pressure is around 128/68 mm, per his BP log for the past few months (copy scanned into chart) Continue Losartan-HCTZ 100-12.5 mg QD (4) GERD without esophagitis: Code(s): K21.9 - Gastro-esophageal reflux disease without esophagitis Plan: Dietary restrictions reinforced (5) Gall bladder stones: Code(s): K80.20 - Calculus of gallbladder without cholecystitis without obstruction Plan: Patient remains asymptomatic; will continue with observation alone for now Reinforced again low-fat diet to help minimize his abdominal symptoms Ultrasound of the abdomen done a couple of years ago showed (+) multiple gallstones in the gallbladder, with no evidence of obstruction (6) Erectile dysfunction: Code(s): N52.9 - Male erectile dysfunction, unspecified Qualifiers: Erectile dysfunction type: unspecified Qualified Code(s): N52.9 - Male erectile dysfunction, unspecified Plan: Continue Viagra 50 mg QD as needed (7) Overweight (BMI 25.0-29.9): Code(s): E66.3 - Overweight Plan: Reinforced diet/exercise as tolerated/lose weight Plan Follow up in 4 months Orders: Orders Comprehensive [place]. Panel Fast 4 Months E78.00 - Pure hypercholesterolemia, unspecified Hemoglobin A1c 4 Months E11.9 - Type 2 diabetes mellitus without complications Lipid Panel 4 Months E78.00 - Pure hypercholesterolemia, unspecified TSH reflex Free T4 4 Months E78.00 - Pure hypercholesterolemia, unspecified Vitamin D 25-OH Total 4 Months E55.9 - Vitamin D deficiency, unspecified Microalbumin, Random (w Creat) 4 Months E11.9 - Type 2 diabetes mellitus without complications Complete Blood Count Auto Diff 4 Months I10 - Essential (primary) hypertension UA CC w/rflx Micro + Cult 4 Months R30.0 - Dysuria Medications: Refilled sitagliptin phosphate (Januvia) 100 mg PO DAILY 90 tabs 3RF Coding Level of Care Code Est Pt Level 4 (26615) Diagnoses Pure hypercholesterolemia E78.00 Type 2 diabetes mellitus without complication, with no history of insulin use E11.9 Benign essential hypertension I10 GERD without esophagitis K21.9 Gall bladder stones K80.20 Erectile dysfunction N52.9 Erectile dysfunction type: unspecified Overweight (BMI 25.0-29.9) E66.3
== END 2023-02-08 11:37 | disposition home or self-care (01) ==
PROVIDERS: PCP Internal Medicine; Visit Provider Internal Medicine
DX: E78.00 Pure hypercholesterolemia, unspecified (principal); E11.9 Type 2 diabetes mellitus without complications; I10 Essential (primary) hypertension; K21.9 Gastro-esophageal reflux disease without esophagitis; K80.20 Calculus of gallbladder without cholecystitis without obstruction; N52.9 Male erectile dysfunction, unspecified; E66.3 Overweight
CPT/HCPCS: 99214

== ENCOUNTER 2023-09-12 08:17 | Outpatient (REF) | payer OTHER, SELFPAY ==
[2023-09-12 10:54] LABS: MANUAL DIFF FLAG NO
[2023-09-12 11:04] LABS: Basophils Absolute Auto 0.1 X10*3/uL (0.0-0.2); Basophils Percent Auto 0.9 % (0-2); Eosinophils Absolute Auto 0.2 X10*3/uL (0.0-0.4); Eosinophils Percent Auto 2.3 % (0-4); Hematocrit 38.9 % (42.0-52.0); Hemoglobin 13.8 g/dl (14.0-18.0); Imm Gran Abs Auto 0.04 X10*3/uL (0.00-0.03); Imm Gran Pct Auto 0.4 % (0.0-0.4); Lymphocytes Absolute Auto 3.1 X10*3/uL (1.2-4.9); Lymphocytes Percent Auto 30.1 % (20-40); Mean Corpuscular HGB Conc 35.5 g/dl (31.0-36.0); Mean Corpuscular Hemoglobin 31.7 pg (27.0-33.0); Mean Corpuscular Volume 89.4 fL (80.0-98.0); Mean Platelet Volume 9.8 fL (9.4-12.4); Monocytes Absolute Auto 0.9 X10*3/uL (0.1-1.2); Neutrophils Absolute Auto 5.9 x10*3/uL (2.0-8.3); Neutrophils Percent Auto 57.3 % (45-73); Platelet Count 223 X10*3/uL (160-400); Red Blood Count 4.35 X10*6/uL (4.60-5.80); Red Cell Distribution Width 11.8 % (11.0-16.0); White Blood Count 10.3 X10*3/uL (4.8-10.8)
[2023-09-12 11:31] LABS: Alanine Aminotransferase 19 U/L (0-40); Albumin Level 4.3 g/dL (3.5-5.0); Alkaline Phosphatase 48 U/L (39-117); Anion Gap 10 (12-20); Aspartate Amino Transferase 19 U/L (5-37); Bilirubin Total 0.5 mg/dL (0.0-1.0); Blood Urea Nitrogen 15 mg/dL (9-16); Calcium 9.7 mg/dL (8.4-10.2); Carbon Dioxide 28 mmol/L (22-29); Chloride 105 mmol/L (96-108); Cholesterol 149 mg/dL (<200); Estimated Glomerular Filt Rate 56; Glucose Fasting 187 mg/dL (60-99); HDL Cholesterol 46 mg/dL (>40); LDL Cholesterol Calculated 79 mg/dL (<100); Potassium 4.4 mmol/L (3.3-5.1); Sodium 139 mmol/L (135-145); Total Protein 7.6 g/dL (6.5-8.0); Triglycerides 124 mg/dL (<150)
[2023-09-12 11:39] LABS: Estimated Average Glucose 171 mg/dL; Hemoglobin A1c % 7.6 % (<6.0)
[2023-09-12 11:48] LABS: Vitamin D 25-OH Total 60.6 ng/mL (>30)
[2023-09-12 13:35] LABS: Appearance Urine Clear; Color Urine Yellow; Glucose Urine UA >=1000 mg/dL (Negative); Leukocyte Esterase Urine Negative (Negative); Nitrite Urine Negative (Negative); PH 5.5 (5.0-9.0); UMIC TRIGGER UACC YES; Urine Blood Negative (Negative); Urine Ketones Negative (Negative); Urine Protein Negative (Neg-Trace)
[2023-09-12 13:38] LABS: Bacteria Urine None Seen (None Seen); Hyaline Casts Urine 0-2 /LPF (0-2); RBC Urine 0-2 /HPF (0-2); Squamous Epithelial Cell Urine 0-2 /HPF (0-2); WBC Urine 0-5 /HPF (0-5)
[2023-09-12 13:44] LABS: Creatinine Urine 80.75 mg/dL; Microalbum/Creatinine Ratio Ur 18.5 ug/mg cr (<30)
== END 2023-09-12 08:18 | disposition home or self-care (01) ==
LOC: HO.10HDL 08:17
PROVIDERS: Visit Provider Internal Medicine
DX: E55.9 Vitamin D deficiency, unspecified (principal); E11.9 Type 2 diabetes mellitus without complications; E78.00 Pure hypercholesterolemia, unspecified; I10 Essential (primary) hypertension
CPT/HCPCS: 36415; 80053; 80061; 81001; 82043; 82306; 82570; 83036; 84443; 85025

== ENCOUNTER 2023-09-17 15:16 | Outpatient (AMB) | payer OTHER, SELFPAY ==
[2023-09-17 15:18] VITALS: BP 136/90; PULSE 91; O2SAT 98; BMI 29.7
--- NOTE | 2023-09-17 15:18 | A.OFFPC_ITS ---
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 Automation Analyst Required: No Accompanied by: Self / Same As Patient Allergies morphine [MORPHINE] Adverse Reaction (Intermediate, Verified 09/17/23 16:06) NAUSEA lisinopril [LISINOPRIL] Adverse Reaction (Mild, Verified 09/17/23 16:06) COUGH metformin [Glucophage] Adverse Reaction (Unknown, Verified 09/17/23 16:06) Diarrhea Medication List - Last Reconciled 09/17/23 by Jorge Luis Nava MD blood sugar diagnostic (FreeStyle Lite Strips) As directed once a day glyburide 5 mg PO DAILY 90 days losartan-hydrochlorothiazide 100-12.5 mg 1 tab PO DAILY metformin 1,000 mg (2 x 500 mg) PO BID rosuvastatin 10 mg PO DAILY sildenafil (Viagra) 50 mg PO DAILY PRN 90 days sitagliptin phosphate (Januvia) 100 mg PO DAILY Tobacco use date assessed: 09/17/23 Fall risk assessment: No Falls in past year Last assessed Fall Risk: 09/17/23 Dental Screening Dental Screen Date: 09/17/23 Did you have a dental visit in the last 12 months?: Yes Did you have a dental problem in the last 6 months where you did not have access to dental care?: No Was dental information given to patient?: Patient has dentist HPI DM, hyperlipidemia, HTN HPI Details Patient comes in today for his follow up visit States that he feels okay He denies any headaches or dizziness Denies any chest pains, no SOB No nausea/vomiting, no abdominal pain No change in bowel habits noted Had his follow up labs done last week - to discuss his results [facility] Medical History Shingles History of panic attacks History of anxiety Overweight (BMI 25.0-29.9) Family history of ovarian cancer History of adenomatous polyp of colon Tubular adenoma of colon Hip pain Elbow pain Shoulder pain Obesity (BMI 30-39.9) Erectile dysfunction Gall bladder stones GERD without esophagitis Pure hypercholesterolemia Benign essential hypertension Type 2 diabetes mellitus without complication, with no history of insulin use Surgical History History of colonoscopy History of bilateral cataract extraction History of shoulder surgery Family History Father Cirrhosis Cancer Mother Ovarian cancer Social History Housing: House Are you a primary care coordinator to a significant other at home: No Do you presently have visiting nurse or other home services: No Alcohol intake: current Alcohol intake frequency: holidays/special occasions only Alcohol type: beer Patient Tobacco Use Status: Never used Tobacco e-Cigarette/Vaping Use: Never Used Second Hand Smoke Exposure: No service: Yes ([employer]) Current occupational status: employed Current occupation: [employer] Cognitive needs: No Hearing needs: No Vision needs: No Questionnaire PHQ-9 Over the last 2 weeks, how often have you been bothered by any of the following problems? 1. Little interest or pleasure in doing things: not at all 2. Feeling down, depressed, or hopeless: not at all 3. Trouble falling or staying asleep, or sleeping too much: not at all 4. Feeling tired or having little energy: not at all 5. Poor appetite or overeating: not at all 6. Feeling bad about yourself - or that you are a failure or have let yourself or your family down: not at all 7. Trouble concentrating on things, such as reading the newspaper or watching television: not at all 8. Moving or speaking so slowly that other people could have noticed. Or the opposite - being so fidgety or restless that you have been moving around a lot more than usual: not at all 9. Thoughts that you would be better off or of hurting yourself in some way: not at all Total score: 0 Depression Screening Interpretation: Negative Depression Screening Done: Yes 93530 - PHQ-9 Billing: Yes Source: Developed by Drs. Armando Hairston, Domenica Hurd, Raul Zamarripa and colleagues, with an educational gillian from [employer]. Thrive Questionnaire Date Thrive assessed: 09/17/23 I am a: Patient What is your living situation today?: I have a steady place to live Within the past 12 months, did the food you bought not last and you didn't have the money to get more?: Never true Within the past 12 months, did you worry whether your food would run out before you got money to buy more?: Never true Do you have trouble paying for medicines?: No Do you have trouble getting transportation to medical appointments?: No Do you have trouble paying your heating and electricity bill?: No Do you have trouble taking care of your child, family member or friend?: No Do you have trouble with day-to-day activities such as bathing, preparing meals, shopping, managing finances, etc.?: No Are you currently unemployed and looking for a job?: No Are you interested in more education?: No Please select the resources that you would like help with: None Currently or been in a relationship where the following occur: no concerns reported THRIVE Score: 0 AUDIT C Alcohol Use Questionnaire (AUDIT-C) 1. How often do you have a drink containing alcohol?: Never 3. How often do you have six or more drinks on one occasion?: Never Total Score: 0 Score Reviewed/Action Taken: Yes BRENNA-7 AMB Questionnaire BRENNA-7 Date BRENNA - 7 assessed: 09/17/23 Feeling nervous, anxious, or on edge: 0 = Not at all Not being able to stop or control worryin = Not at all Worrying too much about different things: 0 = Not at all Trouble relaxin = Not at all Being so restless that it is hard to sit still: 0 = Not at all Becoming easily annoyed or irritable: 0 = Not at all Feeling afraid as if something awful might happen: 0 = Not at all Total BRENNA-7 score (0-4 normal; 5-9 mild; 10-14 moderate; 15-21 severe): 0 Source: Developed by Drs. Armando Hairston, Domenica Hurd, Raul Zamarripa and colleagues, with an educational gillian from [employer]. Review of Systems Const Denies fatigue, Denies fever(s) and Denies headache(s) ENT Denies dysphagia, Denies dizziness, Denies otalgia, Denies headache(s), Denies neck pain, Denies odynophagia and Denies sore throat Card Denies chest pain, Denies palpitations and Denies dyspnea Resp Denies cough, Denies dyspnea and Denies wheezing GI Denies abdominal pain, Denies constipation, Denies dysphagia, Denies heartburn, Denies diarrhea, Denies nausea, Denies odynophagia and Denies vomiting Denies dysuria, Denies nocturia and Denies urinary frequency Musc Denies back pain, Reports arthralgias (on and off in the right shoulder, mostly mild), Denies joint swelling and Denies neck pain Skin/Breast Denies rash Neuro Denies dizziness and Denies headache(s) Endo Denies fatigue and Denies palpitations Aller/Immun Denies wheezing Physical exam (Primary Care) Vital Signs: Last Vital Signs Pulse 91 09/17/23 15:18 BP 136/90 H 09/17/23 15:18 Pulse Ox 98 09/17/23 15:18 Oxygen Delivery Method Room Air 09/17/23 15:18 BMI result Body Mass Index 29.7 Tobacco/Smoking Status: Tobacco use Status Tobacco use date assessed 09/17/23 09/17/23 15:23 Patient Tobacco Use Status Never used Tobacco 09/17/23 15:23 e-Cigarette/Vaping Use Never Used 09/17/23 15:23 PHQ-9: PHQ-9 Score PHQ-9: Total score 0 09/17/23 15:23 Depression Screening Interpretation: Negative Thrive Assessment: Date of Thrive Assessment Date Thrive assessed 09/17/23 09/17/23 15:23 Currently or been in a relationship where the following occur: no concerns reported Const General: no acute distress and alert HENMT Ears: TM's normal bilaterally and EAC's normal Throat: Yes posterior oropharynx normal and Yes tonsils normal (no TP congestion) Neck Neck: Yes no lymphadenopathy and Yes supple Thyroid: Thyroid normal Resp Auscultation: clear to auscultation bilaterally, no rales and no wheezes Cardio Rate: regular rate Rhythm: regular rhythm Heart sounds: no murmurs GI Palpation (GI): Soft to palpation and nontender Auscultation: normal bowel sounds General: Yes no CVA tenderness Back/Spine/Pelvis Back: no CVA tenderness Skin Rashes: no rashes Extrem General: Yes no clubbing, cyanosis or edema Results Reviewed Results Reviewed: Laboratory Tests 09/12/23 08:20 WBC 10.3 Hgb 13.8 L Hct 38.9 L Plt Count 223 Sodium 139 Potassium 4.4 Creatinine 1.29 Estimated GFR 56 Fasting Glucose 187 H Hemoglobin A1c % 7.6 H AST 19 ALT 19 Triglycerides 124 Cholesterol 149 LDL Cholesterol, Calc 79 HDL Cholesterol 46 25-OH Vitamin D Total 60.6 TSH 0.70 Ur Specific [place] 1.020 Urine Protein Negative Urine Glucose (UA) >=1000 H Urine Blood Negative Urine Nitrite Negative Ur Leukocyte Esterase Negative Microalb/Creat Ratio 18.5 Assessment and Plan Assessment & Plan (1) Pure hypercholesterolemia: Code(s): E78.00 - Pure hypercholesterolemia, unspecified Plan: Results of his labs done last week reviewed and discussed with patient Reinforced low cholesterol diet Continue Rosuvastatin 10 mg QD Will recheck his labs and fasting lipids in 4 months for follow-up (2) Type 2 diabetes mellitus without complication, with no history of insulin use: Code(s): E11.9 - Type 2 diabetes mellitus without complications Plan: HgbA1c was at 7.6% on his labs done last week (was at 7.5% a few months ago) - goal is <7.0% Reinforced diabetic diet Continue Metformin 500 mg 2 tablets BID, Januvia 100 mg QD and Glyburide 5 mg 1/2 tablet (2.5 mg) QD States that he also recently started walking again daily and is hoping that the regular physical activity will help control his diabetes better (3) Benign essential hypertension: Code(s): I10 - Essential (primary) hypertension Plan: Reinforced low-sodium diet - goal is systolic BP of at least 120 to 130 mm or less Patient's average blood pressure is around 128/68 mm, per his BP log for the past few months (copy scanned into chart) Continue Losartan-HCTZ 100-12.5 mg QD (4) GERD without esophagitis: Code(s): K21.9 - Gastro-esophageal reflux disease without esophagitis Plan: Dietary restrictions reinforced (5) Gall bladder stones: Code(s): K80.20 - Calculus of gallbladder without cholecystitis without obstruction Plan: Patient remains asymptomatic; will continue with observation alone for now Reinforced again low-fat diet to help minimize his abdominal symptoms Ultrasound of the abdomen done a couple of years ago showed (+) multiple gallsto laly in the gallbladder, with no evidence of obstruction (6) Erectile dysfunction: Code(s): N52.9 - Male erectile dysfunction, unspecified Qualifiers: Erectile dysfunction type: unspecified Qualified Code(s): N52.9 - Male erectile dysfunction, unspecified Plan: Continue Viagra 50 mg QD as needed (7) Overweight (BMI 25.0-29.9): Code(s): E66.3 - Overweight Plan: Reinforced diet/exercise as tolerated/lose weight Plan Follow up in 4 months Orders: Orders Complete Blood Count Auto Diff 4 Months D64.9 - Anemia, unspecified Lipid Panel 4 Months E78.00 - Pure hypercholesterolemia, unspecified UA CC w/rflx Micro + Cult 4 Months R30.0 - Dysuria Hemoglobin A1c 4 Months E11.9 - Type 2 diabetes mellitus without complications Comprehensive [place]. Panel Fast 4 Months E78.00 - Pure hypercholesterolemia, unspecified TSH reflex Free T4 4 Months E78.00 - Pure hypercholesterolemia, unspecified Microalbumin, Random (w Creat) 4 Months E11.9 - Type 2 diabetes mellitus without complications Vitamin D 25-OH Total 4 Months E55.9 - Vitamin D deficiency, unspecified Coding Level of Care Code Est Pt Level 4 (13161) Diagnoses Pure hypercholesterolemia E78.00 Type 2 diabetes mellitus without complication, with no history of insulin use E11.9 Benign essential hypertension I10 GERD without esophagitis K21.9 Gall bladder stones K80.20 Erectile dysfunction, unspecified erectile dysfunction type N52.9 Erectile dysfunction type: unspecified Overweight (BMI 25.0-29.9) E66.3
== END 2023-09-17 16:07 | disposition home or self-care (01) ==
PROVIDERS: PCP Internal Medicine; Visit Provider Internal Medicine
DX: E78.00 Pure hypercholesterolemia, unspecified (principal); E11.9 Type 2 diabetes mellitus without complications; I10 Essential (primary) hypertension; K21.9 Gastro-esophageal reflux disease without esophagitis; K80.20 Calculus of gallbladder without cholecystitis without obstruction; N52.9 Male erectile dysfunction, unspecified; E66.3 Overweight
CPT/HCPCS: 99214

== ENCOUNTER 2024-01-21 08:16 | Outpatient (REF) | payer OTHER, SELFPAY ==
[2024-01-21 10:43] LABS: MANUAL DIFF FLAG NO
[2024-01-21 10:47] LABS: Appearance Urine Clear; Color Urine Yellow; Glucose Urine UA Negative (Negative); Leukocyte Esterase Urine Negative (Negative); Nitrite Urine Negative (Negative); PH 5.5 (5.0-9.0); Specific Gravity - Urine 1.015 (1.005-1.025); Urine Blood Negative (Negative); Urine Ketones Negative (Negative); Urine Protein Negative (Neg-Trace)
[2024-01-21 10:53] LABS: Basophils Absolute Auto 0.1 X10*3/uL (0.0-0.2); Basophils Percent Auto 0.9 % (0-2); Eosinophils Absolute Auto 0.3 X10*3/uL (0.0-0.4); Eosinophils Percent Auto 3.1 % (0-4); Hematocrit 40.4 % (42.0-52.0); Imm Gran Abs Auto 0.04 X10*3/uL (0.00-0.03); Imm Gran Pct Auto 0.4 % (0.0-0.4); Lymphocytes Absolute Auto 3.9 X10*3/uL (1.2-4.9); Mean Corpuscular HGB Conc 34.7 g/dl (31.0-36.0); Mean Corpuscular Hemoglobin 31.3 pg (27.0-33.0); Mean Corpuscular Volume 90.2 fL (80.0-98.0); Mean Platelet Volume 9.6 fL (9.4-12.4); Monocytes Absolute Auto 1.2 X10*3/uL (0.1-1.2); Monocytes Percent Auto 11.7 % (2-11); Neutrophils Absolute Auto 4.9 x10*3/uL (2.0-8.3); Neutrophils Percent Auto 46.9 % (45-73); Platelet Count 244 X10*3/uL (160-400); Red Blood Count 4.48 X10*6/uL (4.60-5.80); Red Cell Distribution Width 11.9 % (11.0-16.0); White Blood Count 10.5 X10*3/uL (4.8-10.8)
[2024-01-21 10:54] LABS: Estimated Average Glucose 192 mg/dL; Hemoglobin A1c % 8.3 % (<6.0)
[2024-01-21 11:18] LABS: Creatinine Urine 84.81 mg/dL; Microalbum/Creatinine Ratio Ur 17.6 ug/mg cr (<30)
[2024-01-21 11:36] LABS: Alanine Aminotransferase 22 U/L (0-40); Albumin Level 4.6 g/dL (3.5-5.0); Alkaline Phosphatase 49 U/L (39-117); Anion Gap 14 (12-20); Aspartate Amino Transferase 25 U/L (5-37); Bilirubin Total 0.4 mg/dL (0.0-1.0); Blood Urea Nitrogen 16 mg/dL (9-16); Calcium 10.2 mg/dL (8.4-10.2); Carbon Dioxide 28 mmol/L (22-29); Chloride 102 mmol/L (96-108); Cholesterol 132 mg/dL (<200); Estimated Glomerular Filt Rate 57; Glucose Fasting 135 mg/dL (60-99); HDL Cholesterol 45 mg/dL (>40); LDL Cholesterol Calculated 64 mg/dL (<100); Potassium 4.2 mmol/L (3.3-5.1); Sodium 140 mmol/L (135-145); Total Protein 7.8 g/dL (6.5-8.0); Triglycerides 115 mg/dL (<150); Vitamin D 25-OH Total 43.4 ng/mL (>30)
== END 2024-01-21 08:17 | disposition home or self-care (01) ==
LOC: HO.10HDL 08:16
PROVIDERS: Visit Provider Internal Medicine
DX: D64.9 Anemia, unspecified (principal); R30.0 Dysuria; E78.00 Pure hypercholesterolemia, unspecified; E55.9 Vitamin D deficiency, unspecified; E11.9 Type 2 diabetes mellitus without complications
CPT/HCPCS: 36415; 80053; 80061; 81003; 82043; 82306; 82570; 83036; 84443; 85025

== ENCOUNTER 2024-01-22 15:01 | Outpatient (AMB) | payer OTHER, SELFPAY ==
[2024-01-22 15:16] VITALS: BP 124/82; PULSE 81; O2SAT 98; BMI 29.4
--- NOTE | 2024-01-22 15:16 | A.OFFPC_ITS ---
Vital Signs 01/22/24 15:16 Height 5 ft 7 in Weight 188 lb 0.8 oz BMI 29.4 BP 124/82 Blood Pressure Location Lt brachial Position Sitting Pulse 81 Pulse Source Pulse Oximeter Pulse Oximetry (%) 98 Oxygen Delivery Method Room Air Intake Visit Reasons: DM, hyperlipidemia, HTN Intake Note: Patient is here to follow up DM, hyperlipidemia, HTN Director Of Psychiatry Required: No Allergies morphine [MORPHINE] Adverse Reaction (Intermediate, Verified 01/22/24 16:00) NAUSEA lisinopril [LISINOPRIL] Adverse Reaction (Mild, Verified 01/22/24 16:00) COUGH metformin [Glucophage] Adverse Reaction (Unknown, Verified 01/22/24 16:00) Diarrhea Medication List - Last Reconciled 01/22/24 by Jorge Luis Nava MD blood sugar diagnostic (FreeStyle Lite Strips) As directed once a day glyburide 5 mg PO DAILY 90 days losartan-hydrochlorothiazide 100-12.5 mg 1 tab PO DAILY metformin 1,000 mg (2 x 500 mg) PO BID rosuvastatin 10 mg PO DAILY sildenafil (Viagra) 50 mg PO DAILY PRN 90 days sitagliptin phosphate (Januvia) 100 mg PO DAILY Tobacco use date assessed: 09/17/23 Fall risk assessment: No Falls in past year Last assessed Fall Risk: 01/22/24 Dental Screening Dental Screen Date: 09/17/23 HPI DM, hyperlipidemia, HTN HPI Details Patient comes in today for his follow-up visit States that he feels okay He denies any headaches or dizziness Denies any chest pains, no shortness of breath No nausea/ vomiting, no abdominal pain No change in bowel habits noted Needs his Sildenafil Rx refilled He had his follow-up labs done yesterday - to discuss his results [facility] Medical History Shingles History of panic attacks History of anxiety Overweight (BMI 25.0-29.9) Family history of ovarian cancer History of adenomatous polyp of colon Tubular adenoma of colon Hip pain Elbow pain Shoulder pain Obesity (BMI 30-39.9) Erectile dysfunction Gall bladder stones GERD without esophagitis Pure hypercholesterolemia Benign essential hypertension Type 2 diabetes mellitus without complication, with no history of insulin use Surgical History History of colonoscopy History of bilateral cataract extraction History of shoulder surgery Family History Father Cirrhosis Cancer Mother Ovarian cancer Social History Housing: House Are you a primary healthcare social worker to a significant other at home: No Do you presently have visiting nurse or other home services: No Alcohol intake: current Alcohol intake frequency: holidays/special occasions only Alcohol type: beer Patient Tobacco Use Status: Never used Tobacco e-Cigarette/Vaping Use: Never Used Second Hand Smoke Exposure: No service: Yes ([employer]) Current occupational status: employed 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 How often do you have a drink containing alcohol?: Never 3. How often do you have six or more drinks on one occasion?: Never Total Score: 0 Score Reviewed/Action Taken: Yes BRENNA-7 AMB Questionnaire BRENNA-7 Date BRENNA - 7 assessed: 09/17/23 Source: Developed by Drs. Armando Hairston, Domenica Hurd, Raul Zamarripa and colleagues, with an educational gillian from [employer]. Review of Systems Const Denies chills, Denies fatigue, Denies fever(s) and Denies headache(s) ENT Denies dysphagia, Denies dizziness, Denies otalgia, Denies headache(s), Denies neck pain, Denies odynophagia and Denies sore throat Card Denies chest pain, Denies palpitations and Denies dyspnea Resp Denies cough, Denies dyspnea and Denies wheezing GI Denies abdominal pain, Denies constipation, Denies dysphagia, Denies heartburn, Denies diarrhea, Denies nausea, Denies odynophagia and Denies vomiting Reports erectile dysfunction, Denies dysuria, Denies nocturia and Denies urinary frequency Musc Denies back pain, Reports arthralgias (on and off in the right shoulder, mostly mild), Denies joint swelling and Denies neck pain Skin/Breast Denies rash Neuro Denies dizziness and Denies headache(s) Endo Denies fatigue and Denies palpitations Aller/Immun Denies wheezing Physical exam (Primary Care) Vital Signs: Last Vital Signs Pulse 81 01/22/24 15:16 BP 124/82 01/22/24 15:16 Pulse Ox 98 01/22/24 15:16 Oxygen Delivery Method Room Air 01/22/24 15:16 BMI result Body Mass Index 29.4 Tobacco/Smoking Status: Tobacco use Status Tobacco use date assessed 09/17/23 01/22/24 15:18 Patient Tobacco Use Status Never used Tobacco 01/22/24 15:18 e-Cigarette/Vaping Use Never Used 01/22/24 15:18 Thrive Assessment: Date of Thrive Assessment Date Thrive assessed 09/17/23 01/22/24 15:18 Const General: no acute distress and alert HENMT Ears: TM's normal bilaterally and EAC's normal Throat: Yes posterior oropharynx normal and Yes tonsils normal (no TP congestion) Neck Neck: Yes no lymphadenopathy and Yes supple Thyroid: Thyroid normal Resp Auscultation: clear to auscultation bilaterally, no rales and no wheezes Cardio Rate: regular rate Rhythm: regular rhythm Heart sounds: no murmurs GI Palpation (GI): Soft to palpation and nontender Auscultation: normal bowel sounds General: Yes no CVA tenderness Back/Spine/Pelvis Back: no CVA tenderness Thoracic/Lumbar Spine: No lumbar spinal tenderness Skin Rashes: no rashes Extrem General: Yes no clubbing, cyanosis or edema Results Reviewed Results Reviewed: Laboratory Tests 02/05/23 01/21/24 08:35 08:20 WBC 10.5 Hgb 14.0 Hct 40.4 L Plt Count 244 Sodium 140 Potassium 4.2 Creatinine 1.26 Estimated GFR 57 Fasting Glucose 135 H Hemoglobin A1c % 8.3 H Calcium 10.2 AST 25 ALT 22 Triglycerides 115 Cholesterol 132 LDL Cholesterol, Calc 64 HDL Cholesterol 45 Vitamin B12 482 25-OH Vitamin D Total 43.4 TSH 0.80 Ur Specific [place] 1.015 Urine Protein Negative Urine Glucose (UA) Negative Urine Blood Negative Urine Nitrite Negative Ur Leukocyte Esterase Negative Microalb/Creat Ratio 17.6 Assessment and Plan Assessment & Plan (1) Pure hypercholesterolemia: Code(s): E78.00 - Pure hypercholesterolemia, unspecified Plan: Results of his labs done yesterday reviewed and discussed with patient Reinforced low cholesterol diet Continue Rosuvastatin 10 mg QD Will recheck his labs and fasting lipids in 4 months for follow-up (2) Type 2 diabetes mellitus without complication, with no history of insulin use: Code(s): E11.9 - Type 2 diabetes mellitus without complications Plan: His HgbA1c was at 8.3% on his labs done yesterday (was at 7.6% a few months ago) - goal is <7.0% Reinforced diabetic diet - patient again admits to poor compliance with his diet over the past few months and will get back on his recommended diet again starting today Continue Metformin 500 mg 2 tablets BID, Januvia 100 mg QD and Glyburide 5 mg 1/2 tablet (2.5 mg) QD but advised that we may need to make some changes to his medications if he cannot get his diabetes under control over the next few months States that he recently started walking again daily and is hoping that the reg ular physical activity, along with an improved diet will help control his diabetes better (3) Benign essential hypertension: Code(s): I10 - Essential (primary) hypertension Plan: Reinforced low-sodium diet - goal is systolic BP of at least 120 to 130 mm or less Patient's average blood pressure is around 128/68 mm, per his BP log for the past few months (copy scanned into chart) Continue Losartan-HCTZ 100-12.5 mg QD (4) GERD without esophagitis: Code(s): K21.9 - Gastro-esophageal reflux disease without esophagitis Plan: Dietary restrictions reinforced (5) Gall bladder stones: Code(s): K80.20 - Calculus of gallbladder without cholecystitis without obstruction Plan: Patient remains asymptomatic; will continue with observation for now Reinforced again low-fat diet to help minimize his abdominal symptoms Ultrasound of the abdomen done a couple of years ago showed (+) multiple gallstones in the gallbladder, with no evidence of obstruction (6) Erectile dysfunction: Code(s): N52.9 - Male erectile dysfunction, unspecified Qualifiers: Erectile dysfunction type: unspecified Qualified Code(s): N52.9 - Male erectile dysfunction, unspecified Plan: Continue Viagra 50 mg QD as needed - Rx refilled (7) Overweight (BMI 25.0-29.9): Code(s): E66.3 - Overweight Plan: Reinforced diet/exercise as tolerated/lose weight Plan Follow up in 4 months Orders: Orders Hemoglobin A1c 4 Months E11.9 - Type 2 diabetes mellitus without complications Complete Blood Count Auto Diff 4 Months D64.9 - Anemia, unspecified Lipid Panel 4 Months E78.00 - Pure hypercholesterolemia, unspecified Microalbumin, Random (w Creat) 4 Months E11.9 - Type 2 diabetes mellitus without complications UA CC w/rflx Micro + Cult 4 Months R30.0 - Dysuria TSH reflex Free T4 4 Months E78.00 - Pure hypercholesterolemia, unspecified Comprehensive [place]. Panel Fast 4 Months E78.00 - Pure hypercholesterolemia, unspecified Vitamin D 25-OH Total 4 Months E55.9 - Vitamin D deficiency, unspecified Medications: Refilled sildenafil (Viagra) administer 30 minutes to 4 hours before activity 50 mg PO DAILY 90 days PRN 90 tabs 3RF sexual activity N52.9 - Male erectile dysfunction, unspecified Coding Level of Care Code Est Pt Level 4 (46676) Complex EM visit Add On G2211 Diagnoses Pure hypercholesterolemia E78.00 Type 2 diabetes mellitus without complication, with no history of insulin use E11.9 Benign essential hypertension I10 GERD without esophagitis K21.9 Gall bladder stones K80.20 Erectile dysfunction, unspecified erectile dysfunction type N52.9 Erectile dysfunction type: unspecified Overweight (BMI 25.0-29.9) E66.3
== END 2024-01-22 16:18 | disposition home or self-care (01) ==
PROVIDERS: PCP Internal Medicine; Visit Provider Internal Medicine
DX: E78.00 Pure hypercholesterolemia, unspecified (principal); E11.9 Type 2 diabetes mellitus without complications; I10 Essential (primary) hypertension; K21.9 Gastro-esophageal reflux disease without esophagitis; K80.20 Calculus of gallbladder without cholecystitis without obstruction; N52.9 Male erectile dysfunction, unspecified; E66.3 Overweight
CPT/HCPCS: 99214

== ENCOUNTER 2024-05-25 09:15 | Outpatient (REF) | payer OTHER, SELFPAY ==
[2024-05-25 10:46] LABS: MANUAL DIFF FLAG NO
[2024-05-25 10:52] LABS: Basophils Absolute Auto 0.1 X10*3/uL (0.0-0.2); Basophils Percent Auto 0.9 % (0-2); Eosinophils Absolute Auto 0.2 X10*3/uL (0.0-0.4); Eosinophils Percent Auto 2.3 % (0-4); Hematocrit 40.1 % (42.0-52.0); Hemoglobin 13.7 g/dl (14.0-18.0); Imm Gran Abs Auto 0.03 X10*3/uL (0.00-0.03); Imm Gran Pct Auto 0.3 % (0.0-0.4); Lymphocytes Absolute Auto 3.2 X10*3/uL (1.2-4.9); Lymphocytes Percent Auto 30.9 % (20-40); Mean Corpuscular HGB Conc 34.2 g/dl (31.0-36.0); Mean Corpuscular Hemoglobin 30.6 pg (27.0-33.0); Mean Corpuscular Volume 89.5 fL (80.0-98.0); Mean Platelet Volume 9.8 fL (9.4-12.4); Monocytes Absolute Auto 0.9 X10*3/uL (0.1-1.2); Neutrophils Absolute Auto 5.9 x10*3/uL (2.0-8.3); Neutrophils Percent Auto 56.6 % (45-73); Platelet Count 225 X10*3/uL (160-400); Red Blood Count 4.48 X10*6/uL (4.60-5.80); Red Cell Distribution Width 11.9 % (11.0-16.0); White Blood Count 10.5 X10*3/uL (4.8-10.8)
[2024-05-25 11:00] LABS: Estimated Average Glucose 214 mg/dL; Hemoglobin A1C 280.4767 umol/L; Hemoglobin A1c % 9.1 % (<6.0); Total Hemoglobin (HGBA1C) 3685.5061 umol/L
[2024-05-25 11:17] LABS: Alanine Aminotransferase 21 U/L (0-40); Albumin Level 4.5 g/dL (3.5-5.0); Alkaline Phosphatase 49 U/L (39-117); Anion Gap 12 (12-20); Aspartate Amino Transferase 23 U/L (5-37); Bilirubin Total 0.6 mg/dL (0.0-1.0); Blood Urea Nitrogen 15 mg/dL (9-16); Calcium 10.1 mg/dL (8.4-10.2); Carbon Dioxide 28 mmol/L (22-29); Chloride 103 mmol/L (96-108); Cholesterol 140 mg/dL (<200); Estimated Glomerular Filt Rate 56; Glucose Fasting 229 mg/dL (60-99); HDL Cholesterol 48 mg/dL (>40); LDL Cholesterol Calculated 66 mg/dL (<100); Sodium 138 mmol/L (135-145); Triglycerides 132 mg/dL (<150)
[2024-05-25 11:39] LABS: Vitamin D 25-OH Total 44.2 ng/mL (>30)
[2024-05-25 13:16] LABS: Appearance Urine Clear; Color Urine Yellow; Glucose Urine UA 500 mg/dL (Negative); Leukocyte Esterase Urine Negative (Negative); Nitrite Urine Negative (Negative); PH 5.5 (5.0-9.0); Urine Blood Negative (Negative); Urine Ketones Negative (Negative); Urine Protein Negative (Neg-Trace)
[2024-05-25 13:56] LABS: Creatinine Urine 126.69 mg/dL; Microalbum/Creatinine Ratio Ur 24.4 ug/mg cr (<30)
== END 2024-05-25 09:16 | disposition home or self-care (01) ==
LOC: HO.10HDL 09:15
PROVIDERS: Visit Provider Internal Medicine
DX: D64.9 Anemia, unspecified (principal); E11.9 Type 2 diabetes mellitus without complications; E78.00 Pure hypercholesterolemia, unspecified; R30.0 Dysuria; E55.9 Vitamin D deficiency, unspecified
CPT/HCPCS: 36415; 80053; 80061; 81003; 82043; 82306; 82570; 83036; 84443; 85025

== ENCOUNTER 2024-05-26 15:29 | Outpatient (AMB) | payer OTHER, SELFPAY ==
[2024-05-26 15:33] VITALS: BP 130/78; PULSE 86; O2SAT 97; BMI 29.6
--- NOTE | 2024-05-26 15:33 | MHC.PC.OV ---
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: No Accompanied by: Self / Same As Patient Allergies morphine [MORPHINE] Adverse Reaction (Intermediate, Verified 05/26/24 16:14) NAUSEA lisinopril [LISINOPRIL] Adverse Reaction (Mild, Verified 05/26/24 16:14) COUGH metformin [Glucophage] Adverse Reaction (Unknown, Verified 05/26/24 16:14) Diarrhea Medication List - Last Reconciled 05/26/24 by Jorge Luis Nava MD blood sugar diagnostic (FreeStyle Lite Strips) As directed once a day glyburide 5 mg PO DAILY 90 days losartan-hydrochlorothiazide 100-12.5 mg 1 tab PO DAILY metformin 1,000 mg (2 x 500 mg) PO BID rosuvastatin 10 mg PO DAILY sildenafil (Viagra) 50 mg PO DAILY PRN 90 days sitagliptin phosphate (Januvia) 100 mg PO DAILY Tobacco use date assessed: 05/26/24 Fall risk assessment: No Falls in past year Last assessed Fall Risk: 05/26/24 Dental Screening Dental Screen Date: 05/26/24 Did you have a dental visit in the last 12 months?: Yes Did you have a dental problem in the last 6 months where you did not have access to dental care?: No Was dental information given to patient?: Patient has dentist [facility] HPI Details Patient comes in today for his follow-up visit States that he feels okay He denies any headaches or dizziness Denies any chest pains, no increased shortness of breath No nausea/vomiting, no abdominal pain No change in bowel habits noted States that he needs his test strips and lancets Rx refilled He had his follow-up labs done yesterday - to discuss his results [facility] Medical History (Updated 05/31/24 @ 18:44 by Jorge Luis Nava MD) Type 2 diabetes mellitus with hyperglycemia, without long-term current use of insulin Shingles History of panic attacks History of anxiety Overweight (BMI 25.0-29.9) Family history of ovarian cancer History of adenomatous polyp of colon Tubular adenoma of colon Hip pain Elbow pain Shoulder pain Obesity (BMI 30-39.9) Erectile dysfunction Gall bladder stones GERD without esophagitis Pure hypercholesterolemia Benign essential hypertension Type 2 diabetes mellitus without complication, with no history of insulin use Surgical History History of colonoscopy History of bilateral cataract extraction History of shoulder surgery Family History Father Cirrhosis Cancer Mother Ovarian cancer Social History Housing: House Are you a primary child care aide to a significant other at home: No Do you presently have visiting nurse or other home services: No Alcohol intake: current Alcohol intake frequency: holidays/special occasions only Alcohol type: beer Patient Tobacco Use Status: Never used Tobacco e-Cigarette/Vaping Use: Never Used Second Hand Smoke Exposure: No service: Yes ([email or web address]) Current occupational status: employed 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 1. Little interest or pleasure in doing things: not at all 2. Feeling down, depressed, or hopeless: not at all 3. Trouble falling or staying asleep, or sleeping too much: not at all 4. Feeling tired or having little energy: not at all 5. Poor appetite or overeating: not at all 6. Feeling bad about yourself - or that you are a failure or have let yourself or your family down: not at all 7. Trouble concentrating on things, such as reading the newspaper or watching television: not at all 8. Moving or speaking so slowly that other people could have noticed. Or the opposite - being so fidgety or restless that you have been moving around a lot more than usual: not at all 9. Thoughts that you would be better off or of hurting yourself in some way: not at all Total score: 0 Depression Screening Interpretation: Negative Depression Screening Done: Yes 34919 - PHQ-9 Billing: Yes Source: Developed by Drs. Armando Hairston, Domenica HurdRaul and colleagues, with an educational gillian from [employer]. Thrive Questionnaire Date Thrive assessed: 05/26/24 I am a: Patient What is your living situation today?: I have a steady place to live Within the past 12 months, did the food you bought not last and you didn't have the money to get more?: Never true Within the past 12 months, did you worry whether your food would run out before you got money to buy more?: Never true Do you have trouble paying for medicines?: No Do you have trouble getting transportation to medical appointments?: No Do you have trouble paying your heating and electricity bill?: No Do you have trouble taking care of your child, family member or friend?: No Do you have trouble with day-to-day activities such as bathing, preparing meals, shopping, managing finances, etc.?: No Are you currently unemployed and looking for a job?: No Are you interested in more education?: No Please select the resources that you would like help with: None Currently or been in a relationship where the following occur: No concerns reported THRIVE Score: 0 AUDIT C Alcohol Use Questionnaire (AUDIT-C) 1. How often do you have a drink containing alcohol?: Never 3. How often do you have six or more drinks on one occasion?: Never Total Score: 0 Score Reviewed/Action Taken: Yes BRENNA-7 AMB Questionnaire BRENNA-7 Date BRENNA - 7 assessed: 05/26/24 Feeling nervous, anxious, or on edge: 0 = Not at all Not being able to stop or control worryin = Not at all Worrying too much about different things: 0 = Not at all Trouble relaxin = Not at all Being so restless that it is hard to sit still: 0 = Not at all Becoming easily annoyed or irritable: 0 = Not at all Feeling afraid as if something awful might happen: 0 = Not at all Total BRENNA-7 score (0-4 normal; 5-9 mild; 10-14 moderate; 15-21 severe): 0 Source: Developed by Drs. Armando Hairston, Domenica Hurd, Raul Zamarripa and colleagues, with an educational gillian from [employer]. Review of Systems Const Denies chills, Denies fatigue, Denies fever(s) and Denies headache(s) ENT Denies dysphagia, Denies dizziness, Denies otalgia, Denies headache(s), Denies neck pain, Denies odynophagia and Denies sore throat Card Denies chest pain, Denies palpitations and Denies dyspnea Resp Denies cough, Denies dyspnea and Denies wheezing GI Denies abdominal pain, Denies constipation, Denies dysphagia, Denies heartburn, Denies diarrhea, Denies nausea, Denies odynophagia and Denies vomiting Reports erectile dysfunction, Denies dysuria, Denies nocturia and Denies urinary frequency Musc Denies back pain, Reports arthralgias (on and off in the right shoulder, mostly mild), Denies joint swelling and Denies neck pain Skin/Breast Denies rash Neuro Denies dizziness and Denies headache(s) Endo Denies fatigue and Denies palpitations Aller/Immun Denies wheezing Physical exam (Primary Care) Vital Signs: Last Vital Signs Pulse 86 05/26/24 15:33 BP 130/78 05/26/24 15:33 Pulse Ox 97 05/26/24 15:33 Oxygen Delivery Method Room Air 05/26/24 15:33 BMI result Body Mass Index 29.6 Tobacco/Smoking Status: Tobacco use Status Tobacco use date assessed 05/26/24 05/26/24 15:37 Patient Tobacco Use Status Never used Tobacco 05/26/24 15:37 e-Cigarette/Vaping Use Never Used 05/26/24 15:37 PHQ-9: PHQ-9 Score PHQ-9: Total score 0 05/31/24 18:36 Depression Screening Interpretation: Negative Thrive Assessment: Date of Thrive Assessment Date Thrive assessed 05/26/24 05/26/24 15:37 Currently or been in a relationship where the following occur: No concerns reported Const General: no acute distress and alert HENMT Ears: TM's normal bilaterally and EAC's normal Throat: Yes posterior oropharynx normal and Yes tonsils normal (no TP congestion) Neck Neck: Yes no lymphadenopathy and Yes supple Thyroid: Thyroid normal Resp Auscultation: clear to auscultation bilaterally, no rales and no wheezes Cardio Rate: regular rate Rhythm: regular rhythm Heart sounds: no murmurs GI Palpation (GI): Soft to palpation and nontender Auscultation: normal bowel sounds General: Yes no CVA tenderness Back/Spine/Pelvis Back: no CVA tenderness Thoracic/Lumbar Spine: No lumbar spinal tenderness Skin Rashes: no rashes Extrem General: Yes no clubbing, cyanosis or edema Results Reviewed Results Reviewed: Laboratory Tests 05/25/24 09:22 WBC 10.5 Hgb 13.7 L Hct 40.1 L Plt Count 225 Sodium 138 Potassium 5.0 Creatinine 1.29 Estimated GFR 56 Fasting Glucose 229 H Hemoglobin A1c % 9.1 H Calcium 10.1 AST 23 ALT 21 Triglycerides 132 Cholesterol 140 LDL Cholesterol, Calc 66 HDL Cholesterol 48 25-OH Vitamin D Total 44.2 TSH 0.70 Ur Specific Basom 1.020 Urine Protein Negative Urine Glucose (UA) 500 H Urine Blood Negative Urine Nitrite Negative Ur Leukocyte Esterase Negative Microalb/Creat Ratio 24.4 Coding Level of Care Code Est Pt Level 4 (06189) Complex EM visit Add On G2211 Diagnoses Pure hypercholesterolemia E78.00 Type 2 diabetes mellitus with hyperglycemia, without long-term current use of insulin E11.65 Benign essential hypertension I10 GERD without esophagitis K21.9 Gall bladder stones K80.20 Erectile dysfunction, unspecified erectile dysfunction type N52.9 Erectile dysfunction type: unspecified Overweight (BMI 25.0-29.9) E66.3 Additional Codes PHQ-9 - 67779 - PHQ-9 Billing: Yes ([id number]) Assessment & Plan Assessment & Plan (1) Pure hypercholesterolemia: Code(s): E78.00 - Pure hypercholesterolemia, unspecified Category: Medical Plan: Results of his labs done yesterday reviewed and discussed with patient Reinforced low cholesterol diet Continue Rosuvastatin 10 mg QD Will recheck his labs and fasting lipids in 4 months for follow-up (2) Type 2 diabetes mellitus with hyperglycemia, without long-term current use of insulin: Code(s): E11.65 - Type 2 diabetes mellitus with hyperglycemia Category: Medical Plan: His HgbA1c has increased further to 9.1% on his labs done yesterday (was at 8.3% a few months ago) - goal is <7.0% Reinforced diabetic diet - patient again admits to poor compliance with his diet over the past few months Continue Metformin 500 mg 2 tablets BID, Januvia 100 mg QD and Glyburide 5 mg 1/2 tablet (2.5 mg) QD Have advised that at this point, there is really not much else left to start him on medication-curiel other than Jardiance or Farxiga or the injectable GLP-1s like Ozempic or Trulicity Patient asked for one last try to get himself back on track and to improve his diet and glycemic control and will agree to have his meds changed or added to at his next appointment if he still is not able to get himself better than he is now and closer to goal He admits to drinking diet Coke almost on a daily basis and will give that up now Will have him recheck his FBS and HgbA1c in 4 months for follow up (3) Benign essential hypertension: Code(s): I10 - Essential (primary) hypertension Category: Medical Plan: Reinforced low-sodium diet - goal is systolic BP of at least 120 to 130 mm or less Patient's average blood pressure is around 128/68 mm, per his BP log for the past few months (copy scanned into chart) Continue Losartan-HCTZ 100-12.5 mg QD (4) GERD without esophagitis: Code(s): K21.9 - Gastro-esophageal reflux disease without esophagitis Category: Medical Plan: Dietary restrictions reinforced (5) Gall bladder stones: Code(s): K80.20 - Calculus of gallbladder without cholecystitis without obstruction Category: Medical Plan: Ultrasound of the abdomen done a couple of years ago showed (+) multiple gallstones in the gallbladder, with no evidence of obstruction Patient remains asymptomatic; will continue with observation for now Reinforced again low-fat diet to help minimize his abdominal symptoms (6) Erectile dysfunction: Code(s): N52.9 - Male erectile dysfunction, unspecified Category: Medical Qualifiers: Erectile dysfunction type: unspecified Qualified Code(s): N52.9 - Male erectile dysfunction, unspecified Plan: Continue Viagra 50 mg QD as needed (7) Overweight (BMI 25.0-29.9): Code(s): E66.3 - Overweight Category: Medical Plan: Reinforced diet/exercise as tolerated/lose weight Plan Follow up in 4 months Orders: Orders Comprehensive [place]. Panel Fast 4 Months E78.00 - Pure hypercholesterolemia, unspecified Hemoglobin A1c 4 Months E11.9 - Type 2 diabetes mellitus without complications Microalbumin, Random (w Creat) 4 Months E11.9 - Type 2 diabetes mellitus without complications UA CC w/rflx Micro + Cult 4 Months R30.0 - Dysuria Complete Blood Count Auto Diff 4 Months D64.9 - Anemia, unspecified Lipid Panel 4 Months E78.00 - Pure hypercholesterolemia, unspecified TSH reflex Free T4 4 Months E78.00 - Pure hypercholesterolemia, unspecified Vitamin D 25-OH Total 4 Months E55.9 - Vitamin D deficiency, unspecified Vitamin B12 and Folate 4 Months E53.8 - Deficiency of other specified B group vitamins Medications: New lancets (FreeStyle Lancets) As directed once a day 100 ea 12RF E11.9 - Type 2 diabetes mellitus without complications Refilled blood sugar diagnostic (FreeStyle Lite Strips) As directed once a day 100 ea 12RF E11.9 - Type 2 diabetes mellitus without complications
== END 2024-05-26 16:24 | disposition home or self-care (01) ==
PROVIDERS: PCP Internal Medicine; Visit Provider Internal Medicine
DX: E78.00 Pure hypercholesterolemia, unspecified (principal); E11.65 Type 2 diabetes mellitus with hyperglycemia; I10 Essential (primary) hypertension; K21.9 Gastro-esophageal reflux disease without esophagitis; K80.20 Calculus of gallbladder without cholecystitis without obstruction; N52.9 Male erectile dysfunction, unspecified; E66.3 Overweight

== ENCOUNTER → 2024-05-26 15:29 | Outpatient (BNVA) | payer OTHER, SELFPAY | PROVIDERS: PCP Internal Medicine; Visit Provider Internal Medicine | DX: E78.00 Pure hypercholesterolemia, unspecified (principal); E11.65 Type 2 diabetes mellitus with hyperglycemia; I10 Essential (primary) hypertension; K21.9 Gastro-esophageal reflux disease without esophagitis; K80.20 Calculus of gallbladder without cholecystitis without obstruction; N52.9 Male erectile dysfunction, unspecified; E66.3 Overweight; Z79.84 Long term (current) use of oral hypoglycemic drugs; Z79.899 Other long term (current) drug therapy | CPT/HCPCS: 96127 ==

== ENCOUNTER 2024-09-23 09:22 | Outpatient (REF) | payer OTHER, SELFPAY ==
[2024-09-23 10:51] LABS: MANUAL DIFF FLAG NO
[2024-09-23 11:09] LABS: Basophils Absolute Auto 0.1 X10*3/uL (0.0-0.2); Basophils Percent Auto 0.6 % (0-2); Eosinophils Absolute Auto 0.2 X10*3/uL (0.0-0.4); Eosinophils Percent Auto 1.7 % (0-4); Hematocrit 36.9 % (42.0-52.0); Hemoglobin 12.9 g/dl (14.0-18.0); Imm Gran Abs Auto 0.12 X10*3/uL (0.00-0.03); Imm Gran Pct Auto 1.1 % (0.0-0.4); Lymphocytes Absolute Auto 2.9 X10*3/uL (1.2-4.9); Lymphocytes Percent Auto 26.5 % (20-40); Mean Corpuscular Hemoglobin 30.9 pg (27.0-33.0); Mean Corpuscular Volume 88.3 fL (80.0-98.0); Monocytes Absolute Auto 0.9 X10*3/uL (0.1-1.2); Monocytes Percent Auto 8.7 % (2-11); Neutrophils Absolute Auto 6.6 x10*3/uL (2.0-8.3); Neutrophils Percent Auto 61.4 % (45-73); Platelet Count 262 X10*3/uL (160-400); Red Blood Count 4.18 X10*6/uL (4.60-5.80); Red Cell Distribution Width 11.4 % (11.0-16.0); White Blood Count 10.8 X10*3/uL (4.8-10.8)
[2024-09-23 11:15] LABS: Estimated Average Glucose 220 mg/dL; Hemoglobin A1c % 9.3 % (<6.0)
[2024-09-23 11:32] LABS: Alanine Aminotransferase 24 U/L (0-40); Albumin Level 4.1 g/dL (3.5-5.0); Alkaline Phosphatase 52 U/L (39-117); Anion Gap 12 (12-20); Aspartate Amino Transferase 24 U/L (5-37); Bilirubin Total 0.6 mg/dL (0.0-1.0); Blood Urea Nitrogen 17 mg/dL (9-16); Calcium 9.5 mg/dL (8.4-10.2); Carbon Dioxide 27 mmol/L (22-29); Chloride 103 mmol/L (96-108); Cholesterol 159 mg/dL (<200); Estimated Glomerular Filt Rate > 60; Glucose Fasting 189 mg/dL (60-99); HDL Cholesterol 45 mg/dL (>40); LDL Cholesterol Calculated 90 mg/dL (<100); Potassium 4.7 mmol/L (3.3-5.1); Sodium 137 mmol/L (135-145); Total Protein 7.8 g/dL (6.5-8.0); Triglycerides 121 mg/dL (<150)
[2024-09-23 11:40] LABS: TSH reflex Free T4 0.46 uIU/mL (0.32-4.0); Vitamin D 25-OH Total 81.1 ng/mL (>30)
[2024-09-23 11:52] LABS: Folate 14.9 ng/mL (> or = 4.0); Vitamin B12 555 pg/mL (200-900)
[2024-09-23 13:09] LABS: Appearance Urine Clear; Color Urine Yellow; Glucose Urine UA Negative (Negative); Leukocyte Esterase Urine Negative (Negative); Nitrite Urine Negative (Negative); PH 5.5 (5.0-9.0); Specific Gravity - Urine 1.015 (1.005-1.025); Urine Blood Negative (Negative); Urine Ketones Negative (Negative); Urine Protein Negative (Neg-Trace)
[2024-09-23 13:41] LABS: Creatinine Urine 104.85 mg/dL; Microalbum/Creatinine Ratio Ur 21.9 ug/mg cr (<30)
== END 2024-09-23 09:23 | disposition home or self-care (01) ==
LOC: HO.10HDL 09:22
PROVIDERS: Visit Provider Internal Medicine
DX: D64.9 Anemia, unspecified (principal); E11.9 Type 2 diabetes mellitus without complications; E55.9 Vitamin D deficiency, unspecified; E53.8 Deficiency of other specified B group vitamins; E78.00 Pure hypercholesterolemia, unspecified; R30.0 Dysuria
CPT/HCPCS: 36415; 80053; 80061; 81003; 82043; 82306; 82570; 82607; 82746; 83036; 84443; 85025

== ENCOUNTER 2024-09-24 14:26 | Outpatient (AMB) | payer OTHER, SELFPAY ==
--- NOTE | 2024-09-24 14:40 | MHC.PC.OV ---
Vital Signs 09/24/24 14:41 Height 5 ft 7 in Weight 187 lb BMI 29.3 BP 128/72 Blood Pressure Location Lt brachial Position Sitting Pulse 86 Pulse Source Pulse Oximeter Temp 97.8 F Temp Source Oral Pulse Oximetry (%) 98 Oxygen Delivery Method Room Air Intake Visit Reasons: DM, Hyperlipidemia Intake Note: Patient here for a follow up DM, Hyperlipidemia Balance Truing Inspector Required: No Accompanied by: Self / Same As Patient Allergies morphine [MORPHINE] Adverse Reaction (Intermediate, Verified 10/04/24 20:07) NAUSEA lisinopril [LISINOPRIL] Adverse Reaction (Mild, Verified 10/04/24 20:07) COUGH metformin [Glucophage] Adverse Reaction (Unknown, Verified 10/04/24 20:07) Diarrhea Medication List - Last Reconciled 10/04/24 by HEMA Bella blood sugar diagnostic (FreeStyle Lite Strips) As directed once a day cyclobenzaprine 10 mg PO BEDTIME PRN glyburide 5 mg PO DAILY 90 days lancets (FreeStyle Lancets) As directed once a day losartan-hydrochlorothiazide 100-12.5 mg 1 tab PO DAILY metformin 1,000 mg (2 x 500 mg) PO BID rosuvastatin 10 mg PO DAILY saxagliptin 5 mg PO DAILY sildenafil (Viagra) 50 mg PO DAILY PRN 90 days Tobacco use date assessed: 09/24/24 Fall risk assessment: No Falls in past year Last assessed Fall Risk: 09/24/24 Dental Screening Dental Screen Date: 09/24/24 Did you have a dental visit in the last 12 months?: Yes Did you have a dental problem in the last 6 months where you did not have access to dental care?: No Was dental information given to patient?: Patient has dentist HPI DM, Hyperlipidemia HPI Details Patient is a 69-year-old male with significant past medical history of type 2 diabetes, benign essential hypertension, GERD, pure hypercholesterolemia, shoulder pain Reports for about 2.5 weeks he was out of his medication because the Januvia copay was too expensive He started on saxagliptin 5 mg couple days ago and he is hoping that this is going to make a difference Reports muscle pain on the right, upper lateral side, only during the night time. cyclobenzaprine 10 mg at HS ordered Continue to be anemic-reports that he is going to started taking his iron tablets again The patient A1c is 9.3% increased from 9.1%; he is currently on glyburide 5 mg daily, metformin 1000 mg b.i.d. and saxagliptin 5 mg daily Patient denies chest pain, shortness of breath, heart palpitation or dizziness He denies any change in bowel habits or any urinary symptoms [facility] Medical History (Updated 10/04/24 @ 20:42 by HEMA Bella) Type 2 diabetes mellitus with hyperglycemia, without long-term current use of insulin Shingles History of panic attacks History of anxiety Overweight (BMI 25.0-29.9) Family history of ovarian cancer History of adenomatous polyp of colon Tubular adenoma of colon Hip pain Elbow pain Shoulder pain Obesity (BMI 30-39.9) Erectile dysfunction Gall bladder stones GERD without esophagitis Pure hypercholesterolemia Benign essential hypertension Type 2 diabetes mellitus without complication, with no history of insulin use Surgical History History of colonoscopy History of bilateral cataract extraction History of shoulder surgery Family History Father Cirrhosis Cancer Mother Ovarian cancer Social History Housing: House Are you a primary home day care provider to a significant other at home: No Do you presently have visiting nurse or other home services: No Alcohol intake: current Alcohol intake frequency: holidays/special occasions only Alcohol type: beer Patient Tobacco Use Status: Never used Tobacco e-Cigarette/Vaping Use: Never Used Second Hand Smoke Exposure: No service: Yes ([employer]) Current occupational status: employed Current occupation: [employer] Current occupational exposures/hazards: No Cognitive needs: No Hearing needs: No Vision needs: No Questionnaire PHQ-9 Over the last 2 weeks, how often have you been bothered by any of the following problems? 1. Little interest or pleasure in doing things: not at all 2. Feeling down, depressed, or hopeless: not at all 3. Trouble falling or staying asleep, or sleeping too much: not at all 4. Feeling tired or having little energy: not at all 5. Poor appetite or overeating: not at all 6. Feeling bad about yourself - or that you are a failure or have let yourself or your family down: not at all 7. Trouble concentrating on things, such as reading the newspaper or watching television: not at all 8. Moving or speaking so slowly that other people could have noticed. Or the opposite - being so fidgety or restless that you have been moving around a lot more than usual: not at all 9. Thoughts that you would be better off or of hurting yourself in some way: not at all Total score: 0 Depression Screening Interpretation: Negative Depression Screening Done: Yes 18285 - PHQ-9 Billing: Yes Source: Developed by Drs. Armando Hairston, Domenica Hurd, Raul Zamarripa and colleagues, with an educational gillian from [employer]. Thrive Questionnaire Date Thrive assessed: 09/24/24 I am a: Patient What is your living situation today?: I have a steady place to live Within the past 12 months, did the food you bought not last and you didn't have the money to get more?: Never true Within the past 12 months, did you worry whether your food would run out before you got money to buy more?: Never true Do you have trouble paying for medicines?: No Do you have trouble getting transportation to medical appointments?: No Do you have trouble paying your heating and electricity bill?: No Do you have trouble taking care of your child, family member or friend?: No Do you have trouble with day-to-day activities such as bathing, preparing meals, shopping, managing finances, etc.?: No Are you currently unemployed and looking for a job?: No Are you interested in more education?: No Please select the resources that you would like help with: None Currently or been in a relationship where the following occur: No concerns reported THRIVE Score: 0 AUDIT C Alcohol Use Questionnaire (AUDIT-C) 1. How often do you have a drink containing alcohol?: Monthly or less 2. How many drinks containing alcohol do you have on a typical day when you are drinking?: 1 or 2 3. How often do you have six or more drinks on one occasion?: Never Total Score: 1 BRENNA-7 AMB Questionnaire BRENNA-7 Date BRENNA - 7 assessed: 09/24/24 Feeling nervous, anxious, or on edge: 0 = Not at all Not being able to stop or control worryin = Not at all Worrying too much about different things: 0 = Not at all Trouble relaxin = Not at all Being so restless that it is hard to sit still: 0 = Not at all Becoming easily annoyed or irritable: 0 = Not at all Feeling afraid as if something awful might happen: 0 = Not at all Total BRENNA-7 score (0-4 normal; 5-9 mild; 10-14 moderate; 15-21 severe): 0 Source: Developed by Drs. Armando Hairston, Domenica Hurd, Raul Zamarripa and colleagues, with an educational gillian from [employer]. BRENNA-7 Assessment Billing BRENNA-7 Assessment Tool: BRENNA-7 Assessment [id number] Review of Systems Const Denies headache(s) Eyes Denies loss of vision ENT Denies vertigo, Denies dizziness, Denies headache(s) and Denies sore throat Card Denies chest pain, Denies leg edema and Denies lightheadedness Resp Denies cough, Denies hemoptysis and Denies wheezing GI Denies abdominal pain, Denies melena, Denies constipation, Denies diarrhea and Denies vomiting Denies dysuria, Denies urinary frequency and Denies urinary urgency Musc Reports back pain (right upper, lateral muscle pain), Denies arthralgias, Denies joint swelling, Denies numbness and Denies tingling Neuro Denies Abnormal speech present, Denies behavioral changes, Denies vertigo, Denies dizziness, Denies headache(s), Denies loss of vision, Denies memory loss, Denies numbness and Denies tingling Psych Denies anxiety, Denies behavioral changes, Denies depression, Denies memory loss and Denies panic attacks Edgar/Lymph Denies easy bleeding and Denies easy bruising Aller/Immun Denies wheezing Physical exam (Primary Care) Vital Signs: Last Vital Signs Temp 97.8 F 09/24/24 14:41 Pulse 86 09/24/24 14:41 BP 128/72 09/24/24 14:41 Pulse Ox 98 09/24/24 14:41 Oxygen Delivery Method Room Air 09/24/24 14:41 BMI result Body Mass Index 29.3 Tobacco/Smoking Status: Tobacco use Status Tobacco use date assessed 09/24/24 09/24/24 14:46 Patient Tobacco Use Status Never used Tobacco 09/24/24 14:46 e-Cigarette/Vaping Use Never Used 09/24/24 14:46 PHQ-9: PHQ-9 Score PHQ-9: Total score 0 09/24/24 14:50 Depression Screening Interpretation: Negative Thrive Assessment: Date of Thrive Assessment Date Thrive assessed 09/24/24 09/24/24 14:46 Currently or been in a relationship where the following occur: No concerns reported Const General: healthy appearing, no acute distress, alert and awake Nutritional Appearance: well nourished Orientation/consciousness: oriented to person, oriented to place and oriented to time HENMT Ears: TM's normal bilaterally General nose exam: Normal nasal mucous membranes and turbinates present Eyes Conjunctivae: conjunctivae normal Sclerae: sclerae normal Pupils: Equal, round and reactive pupils present Neck Neck: Yes no lymphadenopathy and Yes no JVD Thyroid: Thyroid normal Carotids: no bruits Resp Effort & Inspection: normal respiratory effort and not tachypneic Auscultation: no crackles, no rales, no rhonchi and no wheezes Cardio Rate: regular rate Rhythm: regular rhythm Heart sounds: no murmurs and normal S1 and S2 GI Palpation (GI): Soft to palpation, nontender, no hepatomegaly and no splenomegaly Auscultation: normal bowel sounds General: Yes no CVA tenderness Back/Spine/Pelvis Back: no CVA tenderness Cervical Spine: No Cervical spine tenderness Thoracic/Lumbar Spine: No thoracic spinal tenderness and No lumbar spinal tenderness Skin General skin exam: no rashes or lesions noted and dry skin Neuro General: oriented to person, oriented to place and oriented to time Cranial nerves: Yes Equal, round and reactive pupils present Speech: No Abnormal speech present Gait exam (Neuro): Normal gait present Motor exam (neuro): no tremor noted Extrem Right upper extremity: full ROM Left upper extremity: full ROM Right lower extremity: full ROM; no edema Left lower extremity: full ROM; no edema Psych Mental Status: mental status grossly normal Speech and movement: Normal speech and movement present Affect: normal affect Attitude: cooperative Thought process: Normal thought process present Results Reviewed Results Reviewed: Laboratory Tests 09/23/24 09/23/24 09:25 10:30 WBC 10.8 RBC 4.18 L Hgb 12.9 L Hct 36.9 L MCV 88.3 MCH 30.9 MCHC 35.0 RDW 11.4 Plt Count 262 Sodium 137 Potassium 4.7 Chloride 103 Carbon Dioxide 27 BUN 17 H Creatinine 1.19 Estimated GFR > 60 Fasting Glucose 189 H Estimat Average Glucose 220 Hemoglobin A1c % 9.3 H Calcium 9.5 AST 24 ALT 24 Alkaline Phosphatase 52 Total Protein 7.8 Triglycerides 121 Cholesterol 159 LDL Cholesterol, Calc 90 HDL Cholesterol 45 Vitamin B12 555 25-OH Vitamin D Total 81.1 Folate 14.9 TSH 0.46 Urine Color Yellow Urine Appearance Clear Urine pH 5.5 Ur Specific Golden 1.015 Urine Protein Negative Urine Glucose (UA) Negative Urine Ketones Negative Urine Blood Negative Urine Nitrite Negative Ur Leukocyte Esterase Negative Urine Creatinine 104.85 Urine Microalbumin 23.0 Microalb/Creat Ratio 21.9 Coding Level of Care Code Est Pt Level 4 (56717) Diagnoses Pure hypercholesterolemia E78.00 Type 2 diabetes mellitus with hyperglycemia, without long-term current use of insulin E11.65 Benign essential hypertension I10 GERD without esophagitis K21.9 Gall bladder stones K80.20 Erectile dysfunction, unspecified erectile dysfunction type N52.9 Erectile dysfunction type: unspecified Overweight (BMI 25.0-29.9) E66.3 Right-sided thoracic back pain, unspecified chronicity M54.6 Back pain location: thoracic back pain Chronicity: unspecified Back pain laterality: right Additional Codes PHQ-9 - 95878 - PHQ-9 Billing: Yes ([id number]) BRENNA-7 Assessment Billing - BRENNA-7 Assessment Tool: BRENNA-7 Assessment [id number] ([id number]) Time Spent (min) 37 Assessment & Plan Assessment & Plan (1) Pure hypercholesterolemia: Code(s): E78.00 - Pure hypercholesterolemia, unspecified Category: Medical Plan: Cholesterol levels are within normal goal Reinforced low cholesterol diet Continue Rosuvastatin 10 mg QD Will recheck his labs and fasting lipids in 4 months for follow-up (2) Type 2 diabetes mellitus with hyperglycemia, without long-term current use of insulin: Code(s): E11.65 - Type 2 diabetes mellitus with hyperglycemia Category: Medical Plan: His HgbA1c has increased further to 9.3% on his labs done yesterday (was at 9.1% a few months ago) - goal is <7.0% Eat three balanced meals every day, 4 to 5 hours apart Eat at the same time every day whenever possible Include a bedtime snacks, especially if taking insulin Avoid high-sugar foods and drinks-patient reports that he was out of his Januvia for 2-1/2 weeks because the co-pay was too high Reports that he was started on saxaglipton 5 mg daily and his hoping the this is going to make a difference Continue Metformin 500 mg 2 tablets BID, and Glyburide 5 mg 1/2 tablet (2.5 mg) QD The patient reports that he does not want any changes to be made at this point because he knows that he could do it; he just has to get strict with his diet Will have him recheck his FBS and HgbA1c in 4 months for follow up (3) Benign essential hypertension: Code(s): I10 - Essential (primary) hypertension Category: Medical Plan: Reinforced low-sodium diet - goal is systolic BP of at least 120 to 130 mm or less Blood pressure within goal in office Continue Losartan-HCTZ 100-12.5 mg QD (4) GERD without esophagitis: Code(s): K21.9 - Gastro-esophageal reflux disease without esophagitis Category: Medical Plan: Do not eat meals or drink carbonated beverages within 3 hr of bedtime Decrease the amount of fried, fatty, and spicy foods to decrease gastric acid production Raise the head of the bed using 4 to 6-inch blocks, especially if nocturnal symptoms are present Lose weight if indicated; avoid tight-fitting clothing, especially around the waist Avoid foods that relax the Lower esophageal sphincter (chocolate, peppermint, high-fat foods etc.,) (5) Gall bladder stones: Code(s): K80.20 - Calculus of gallbladder without cholecystitis without obstruction Category: Medical Plan: Ultrasound of the abdomen done a couple of years ago showed (+) multiple gallstones in the gallbladder, with no evidence of obstruction Patient remains asymptomatic; will continue with observation for now Reinforced again low-fat diet to help minimize his abdominal symptoms (6) Erectile dysfunction: Code(s): N52.9 - Male erectile dysfunction, unspecified Category: Medical Qualifiers: Erectile dysfunction type: unspecified Qualified Code(s): N52.9 - Male erectile dysfunction, unspecified Plan: Continue Viagra 50 mg QD as needed (7) Overweight (BMI 25.0-29.9): Code(s): E66.3 - Overweight Category: Medical Plan: Encouraged to exercise for at least 30 minutes a day/5 days a week Healthy eating discussed. Encouraged to eat fruits/vegetables, protein-fish/baked chicken, and to avoid salty/fried foods, sweets, caffeine and carbohydrates. Encouraged to increase water intake 6-8 glasses a day (8) Back pain: Code(s): M54.9 - Dorsalgia, unspecified Category: Medical Qualifiers: Back pain location: thoracic back pain Chronicity: unspecified Back pain laterality: right Qualified Code(s): M54.6 - Pain in thoracic spine Plan: Cyclobenzaprine 10 mg p.o. at bedtime ordered. May use cool packs; may alternate cold and hot packs Plan Follow up in 3 months Orders: Orders Complete Blood Count Auto Diff 3 Months E11.65 - Type 2 diabetes mellitus with hyperglycemia, E66.9 - Obesity, unspecified, K21.9 - Gastro-esophageal reflux disease without esophagitis, E78.00 - Pure hypercholesterolemia, unspecified, I10 - Essential (primary) hypertension, E11.9 - Type 2 diabetes mellitus without complications Comprehensive [place]. Panel Fast 3 Months E11.65 - Type 2 diabetes mellitus with hyperglycemia, E66.9 - Obesity, unspecified, K21.9 - Gastro-esophageal reflux disease without esophagitis, E78.00 - Pure hypercholesterolemia, unspecified, I10 - Essential (primary) hypertension, E11.9 - Type 2 diabetes mellitus without complications Lipid Panel 3 Months E11.65 - Type 2 diabetes mellitus with hyperglycemia, E66.9 - Obesity, unspecified, K21.9 - Gastro-esophageal reflux disease without esophagitis, E78.00 - Pure hypercholesterolemia, unspecified, I10 - Essential (primary) hypertension, E11.9 - Type 2 diabetes mellitus without complications Vitamin D 25-OH Total 3 Months E11.65 - Type 2 diabetes mellitus with hyperglycemia, E66.9 - Obesity, unspecified, K21.9 - Gastro-esophageal reflux disease without esophagitis, E78.00 - Pure hypercholesterolemia, unspecified, I10 - Essential (primary) hypertension, E11.9 - Type 2 diabetes mellitus without complications Glucose Fasting 3 Months E11.65 - Type 2 diabetes mellitus with hyperglycemia, E66.9 - Obesity, unspecified, K21.9 - Gastro-esophageal reflux disease without esophagitis, E78.00 - Pure hypercholesterolemia, unspecified, I10 - Essential (primary) hypertension, E11.9 - Type 2 diabetes mellitus without complications Hemoglobin A1c 3 Months E11.65 - Type 2 diabetes mellitus with hyperglycemia, E66.9 - Obesity, unspecified, K21.9 - Gastro-esophageal reflux disease without esophagitis, E78.00 - Pure hypercholesterolemia, unspecified, I10 - Essential (primary) hypertension, E11.9 - Type 2 diabetes mellitus without complications UA CC w/rflx Micro + Cult 3 Months E11.65 - Type 2 diabetes mellitus with hyperglycemia, E66.9 - Obesity, unspecified, K21.9 - Gastro-esophageal reflux disease without esophagitis, E78.00 - Pure hypercholesterolemia, unspecified, I10 - Essential (primary) hypertension, E11.9 - Type 2 diabetes mellitus without complications TSH reflex Free T4 3 Months E11.65 - Type 2 diabetes mellitus with hyperglycemia, E66.9 - Obesity, unspecified, K21.9 - Gastro-esophageal reflux disease without esophagitis, E78.00 - Pure hypercholesterolemia, unspecified, I10 - Essential (primary) hypertension, E11.9 - Type 2 diabetes mellitus without complications Medications: New cyclobenzaprine 10 mg PO BEDTIME PRN 30 tabs 0RF muscle spasm M79.604 - Pain in right leg Refilled sildenafil (Viagra) administer 30 minutes to 4 hours before activity 50 mg PO DAILY PRN 90 tabs 3RF sexual activity 90 days N52.9 - Male erectile dysfunction, unspecified
[2024-09-24 14:41] VITALS: BP 128/72; PULSE 86; TEMP 36.6; O2SAT 98; BMI 29.3
== END 2024-09-24 15:10 | disposition home or self-care (01) ==
LOC: HO.HMCH 14:26
PROVIDERS: PCP Internal Medicine
DX: E78.00 Pure hypercholesterolemia, unspecified (principal); E11.65 Type 2 diabetes mellitus with hyperglycemia; I10 Essential (primary) hypertension; K21.9 Gastro-esophageal reflux disease without esophagitis; K80.20 Calculus of gallbladder without cholecystitis without obstruction; N52.9 Male erectile dysfunction, unspecified; E66.3 Overweight; M54.6 Pain in thoracic spine

== ENCOUNTER → 2024-09-24 14:26 | Outpatient (BNVA) | payer OTHER, SELFPAY | PROVIDERS: PCP Internal Medicine | DX: E78.00 Pure hypercholesterolemia, unspecified (principal); E11.65 Type 2 diabetes mellitus with hyperglycemia; I10 Essential (primary) hypertension; K21.9 Gastro-esophageal reflux disease without esophagitis; K80.20 Calculus of gallbladder without cholecystitis without obstruction; N52.9 Male erectile dysfunction, unspecified; E66.3 Overweight; Z68.29 Body mass index [BMI] 29.0-29.9, adult; M54.6 Pain in thoracic spine; Z79.899 Other long term (current) drug therapy | CPT/HCPCS: 96127 ==

== ENCOUNTER 2024-12-24 08:26 | Outpatient (REF) | payer OTHER, SELFPAY ==
[2024-12-24 09:47] LABS: MANUAL DIFF FLAG NO
[2024-12-24 10:01] LABS: Basophils Absolute Auto 0.1 X10*3/uL (0.0-0.2); Basophils Percent Auto 1.1 % (0-2); Eosinophils Absolute Auto 0.3 X10*3/uL (0.0-0.4); Eosinophils Percent Auto 2.7 % (0-4); Hematocrit 37.5 % (42.0-52.0); Hemoglobin 13.1 g/dl (14.0-18.0); Imm Gran Abs Auto 0.04 X10*3/uL (0.00-0.03); Imm Gran Pct Auto 0.4 % (0.0-0.4); Lymphocytes Absolute Auto 2.9 X10*3/uL (1.2-4.9); Lymphocytes Percent Auto 30.3 % (20-40); Mean Corpuscular HGB Conc 34.9 g/dl (31.0-36.0); Mean Corpuscular Volume 88.7 fL (80.0-98.0); Mean Platelet Volume 9.9 fL (9.4-12.4); Monocytes Percent Auto 10.6 % (2-11); Neutrophils Absolute Auto 5.2 x10*3/uL (2.0-8.3); Neutrophils Percent Auto 54.9 % (45-73); Platelet Count 222 X10*3/uL (160-400); Red Blood Count 4.23 X10*6/uL (4.60-5.80); Red Cell Distribution Width 11.8 % (11.0-16.0); White Blood Count 9.4 X10*3/uL (4.8-10.8)
[2024-12-24 10:15] LABS: Estimated Average Glucose 197 mg/dL; Hemoglobin A1c % 8.5 % (<6.0)
[2024-12-24 10:21] LABS: Anion Gap 12 (12-20)
[2024-12-24 10:34] LABS: Alanine Aminotransferase 17 U/L (0-40); Albumin Level 4.5 g/dL (3.5-5.0); Alkaline Phosphatase 52 U/L (39-117); Aspartate Amino Transferase 23 U/L (5-37); Bilirubin Total 0.4 mg/dL (0.0-1.0); Blood Urea Nitrogen 16 mg/dL (9-16); Calcium 9.4 mg/dL (8.4-10.2); Carbon Dioxide 26 mmol/L (22-29); Chloride 104 mmol/L (96-108); Cholesterol 119 mg/dL (<200); Estimated Glomerular Filt Rate 58; Glucose Fasting 238 mg/dL (60-99); HDL Cholesterol 43 mg/dL (>40); LDL Cholesterol Calculated 64 mg/dL (<100); Potassium 4.3 mmol/L (3.3-5.1); Sodium 138 mmol/L (135-145); Total Protein 7.2 g/dL (6.5-8.0); Triglycerides 60 mg/dL (<150)
[2024-12-24 10:37] LABS: Vitamin D 25-OH Total 49.7 ng/mL (>30)
[2024-12-24 13:15] LABS: Appearance Urine Clear; Color Urine Yellow; Glucose Urine UA 500 mg/dL (Negative); Leukocyte Esterase Urine Negative (Negative); Nitrite Urine Negative (Negative); PH 5.5 (5.0-9.0); Specific Gravity - Urine 1.015 (1.005-1.025); Urine Blood Negative (Negative); Urine Ketones Trace mg/dL (Negative); Urine Protein Trace mg/dL (Neg-Trace)
== END 2024-12-24 08:27 | disposition home or self-care (01) ==
LOC: HO.10HDL 08:26
DX: E11.65 Type 2 diabetes mellitus with hyperglycemia (principal); E66.9 Obesity, unspecified; K21.9 Gastro-esophageal reflux disease without esophagitis; E78.00 Pure hypercholesterolemia, unspecified; I10 Essential (primary) hypertension
CPT/HCPCS: 36415; 80053; 80061; 81003; 82306; 83036; 84443; 85025

== ENCOUNTER 2024-12-25 09:22 | Outpatient (AMB) | payer OTHER, SELFPAY ==
[2024-12-25 09:26] VITALS: BP 134/78; PULSE 89; RESP 16; TEMP 37.1; O2SAT 98; BMI 29.2
--- NOTE | 2024-12-25 09:26 | MHC.PC.OV ---
Vital Signs 12/25/24 09:26 Height 5 ft 7 in Weight 186 lb 6.4 oz BMI 29.2 BP 134/78 Blood Pressure Location Lt brachial Position Sitting Respiration 16 Pulse 89 Pulse Source Pulse Oximeter Temp 98.7 F Temp Source Oral Pulse Oximetry (%) 98 Oxygen Delivery Method Room Air Intake Visit Reasons: DM/HLD [employer] Supervisor Required: No Accompanied by: Self / Same As Patient Allergies morphine [MORPHINE] Adverse Reaction (Intermediate, Verified 12/25/24 09:53) NAUSEA lisinopril [LISINOPRIL] Adverse Reaction (Mild, Verified 12/25/24 09:53) COUGH metformin [Glucophage] Adverse Reaction (Unknown, Verified 12/25/24 09:53) Diarrhea Medication List - Last Reconciled 12/25/24 by HEMA Bella blood sugar diagnostic (FreeStyle Lite Strips) As directed once a day glyburide 5 mg PO DAILY 90 days lancets (FreeStyle Lancets) As directed once a day losartan-hydrochlorothiazide 100-12.5 mg 1 tab PO DAILY metformin 1,000 mg (2 x 500 mg) PO BID rosuvastatin 10 mg PO DAILY saxagliptin 5 mg PO DAILY sildenafil (Viagra) 50 mg PO DAILY PRN 90 days Tobacco use date assessed: 12/25/24 Fall risk assessment: No Falls in past year Last assessed Fall Risk: 12/25/24 Dental Screening Dental Screen Date: 12/25/24 Did you have a dental visit in the last 12 months?: No Did you have a dental problem in the last 6 months where you did not have access to dental care?: No Was dental information given to patient?: Patient has dentist HPI DM/HLD HPI Details The patient is a 69-year-old male who was presenting for follow up appointment for chronic conditions Reports that he is feeling good today even though his A1c is still elevated A1c was 9.3% on his previous visit and is 8.5% today-explained to patient that this is trending in the right direction and to keep making the modifications Also, would like to know if he could have an EKG for a general evaluation because he has not had 1 in a while Reports that he is planning on starting to work out again and want to make sure that his heart is fine. He is currently not having any symptoms Also reports right leg ache at nighttime only, below the hip at the lateral aspect. Reports using Biofreeze with positive effects, also getting up and walking during the night. Patient would also like his PSA checked-this was added to his follow up labs Patient denies lower leg pain but reports numbness but only at nighttime Denies chest pain, SOB, heart palpitation No abdominal pain for a/change in bowel habits Denies urinary symptoms PFSH Medical History (Updated 10/04/24 @ 20:42 by HEMA Bella) Type 2 diabetes mellitus with hyperglycemia, without long-term current use of insulin Shingles History of panic attacks History of anxiety Overweight (BMI 25.0-29.9) Family history of ovarian cancer History of adenomatous polyp of colon Tubular adenoma of colon Hip pain Elbow pain Shoulder pain Obesity (BMI 30-39.9) Erectile dysfunction Gall bladder stones GERD without esophagitis Pure hypercholesterolemia Benign essential hypertension Type 2 diabetes mellitus without complication, with no history of insulin use Surgical History History of colonoscopy History of bilateral cataract extraction History of shoulder surgery Family History Father Cirrhosis Cancer Mother Ovarian cancer Social History Housing: House Are you a primary healthcare prof to a significant other at home: No Do you presently have visiting nurse or other home services: No Alcohol intake: current Alcohol intake frequency: holidays/special occasions only Alcohol type: beer Patient Tobacco Use Status: Never used Tobacco e-Cigarette/Vaping Use: Never Used Second Hand Smoke Exposure: No service: Yes ([employer]) Current occupational status: employed 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 1. Little interest or pleasure in doing things: not at all 2. Feeling down, depressed, or hopeless: not at all 3. Trouble falling or staying asleep, or sleeping too much: several days 4. Feeling tired or having little energy: several days 5. Poor appetite or overeating: not at all 6. Feeling bad about yourself - or that you are a failure or have let yourself or your family down: not at all 7. Trouble concentrating on things, such as reading the newspaper or watching television: not at all 8. Moving or speaking so slowly that other people could have noticed. Or the opposite - being so fidgety or restless that you have been moving around a lot more than usual: not at all 9. Thoughts that you would be better off or of hurting yourself in some way: not at all Total score: 2 Depression Screening Interpretation: Negative Depression Screening Done: Yes Source: Developed by Drs. Armando Hairston, Domenica Hurd, Raul Zamarripa and colleagues, with an educational gillian from [employer]. Thrive Questionnaire Date Thrive assessed: 12/25/24 I am a: Patient What is your living situation today?: I have a steady place to live Within the past 12 months, did the food you bought not last and you didn't have the money to get more?: I choose not to answer this question Within the past 12 months, did you worry whether your food would run out before you got money to buy more?: I choose not to answer this question Do you have trouble paying for medicines?: No Do you have trouble getting transportation to medical appointments?: No Do you have trouble paying your heating and electricity bill?: No Do you have trouble taking care of your child, family member or friend?: No Do you have trouble with day-to-day activities such as bathing, preparing meals, shopping, managing finances, etc.?: No Are you currently unemployed and looking for a job?: No Are you interested in more education?: No Please select the resources that you would like help with: None Currently or been in a relationship where the following occur: No concerns reported THRIVE Score: 0 AUDIT C Alcohol Use Questionnaire (AUDIT-C) 1. How often do you have a drink containing alcohol?: Monthly or less 2. How many drinks containing alcohol do you have on a typical day when you are drinking?: 1 or 2 3. How often do you have six or more drinks on one occasion?: Never Total Score: 1 Score Reviewed/Action Taken: No BRENNA-7 AMB Questionnaire BRENNA-7 Date BRENNA - 7 assessed: 06/13/25 Feeling nervous, anxious, or on edge: 0 = Not at all Not being able to stop or control worryin = Not at all Worrying too much about different things: 0 = Not at all Trouble relaxin = Several days Being so restless that it is hard to sit still: 0 = Not at all Becoming easily annoyed or irritable: 1 = Several days Feeling afraid as if something awful might happen: 0 = Not at all Total BRENNA-7 score (0-4 normal; 5-9 mild; 10-14 moderate; 15-21 severe): 2 Source: Developed by Drs. Armando Hairston, Domenica Hurd, Raul Zamarripa and colleagues, with an educational gillian from [employer]. Review of Systems Const Denies headache(s) Eyes Denies loss of vision ENT Denies vertigo, Denies dizziness, Denies headache(s) and Denies sore throat Card Denies chest pain, Denies leg edema and Denies lightheadedness Resp Denies cough, Denies hemoptysis and Denies wheezing GI Denies abdominal pain, Denies melena, Denies constipation, Denies diarrhea and Denies vomiting Denies dysuria, Denies urinary frequency and Denies urinary urgency Musc Reports back pain, Denies arthralgias, Denies joint swelling, Reports muscle cramps (below right hip), Reports numbness (lower legs at night only), Reports stiffness and Denies tingling Neuro Denies Abnormal speech present, Denies vertigo, Denies dizziness, Denies headache(s), Denies loss of vision, Reports numbness (lower legs at night only) and Denies tingling Edgar/Lymph Denies easy bleeding and Denies easy bruising Aller/Immun Denies wheezing Physical exam (Primary Care) Vital Signs: Last Vital Signs Temp 98.7 F 12/25/24 09:26 Pulse 89 12/25/24 09:26 Resp 16 12/25/24 09:26 BP 134/78 12/25/24 09:26 Pulse Ox 98 12/25/24 09:26 Oxygen Delivery Method Room Air 12/25/24 09:26 BMI result Body Mass Index 29.2 Tobacco/Smoking Status: Tobacco use Status Tobacco use date assessed 12/25/24 12/25/24 09:29 Patient Tobacco Use Status Never used Tobacco 12/25/24 09:29 e-Cigarette/Vaping Use Never Used 12/25/24 09:29 PHQ-9: PHQ-9 Score PHQ-9: Total score 2 12/25/24 10:00 Depression Screening Interpretation: Negative Thrive Assessment: Date of Thrive Assessment Date Thrive assessed 12/25/24 12/25/24 09:29 Currently or been in a relationship where the following occur: No concerns reported Const General: healthy appearing, no acute distress, alert and awake Nutritional Appearance: well nourished Orientation/consciousness: oriented to person, oriented to place and oriented to time HENMT Ears: TM's normal bilaterally General nose exam: Normal nasal mucous membranes and turbinates present Eyes Conjunctivae: conjunctivae normal Sclerae: sclerae normal Pupils: Equal, round and reactive pupils present Neck Neck: Yes no lymphadenopathy and Yes no JVD Thyroid: Thyroid normal Carotids: no bruits Resp Effort & Inspection: normal respiratory effort and not tachypneic Auscultation: no crackles, no rales, no rhonchi and no wheezes Cardio Rate: regular rate Rhythm: regular rhythm Heart sounds: no murmurs and normal S1 and S2 GI Palpation (GI): Soft to palpation, nontender, no hepatomegaly and no splenomegaly Auscultation: normal bowel sounds Skin General skin exam: no rashes or lesions noted and dry skin Neuro General: oriented to person, oriented to place and oriented to time Cranial nerves: Yes Equal, round and reactive pupils present Speech: No Abnormal speech present Gait exam (Neuro): Normal gait present Motor exam (neuro): no tremor noted Extrem Right upper extremity: full ROM Left upper extremity: full ROM Right lower extremity: full ROM; no edema Left lower extremity: full ROM; no edema Psych Mental Status: mental status grossly normal Speech and movement: Normal speech and movement present Affect: normal affect Attitude: cooperative Thought process: Normal thought process present Coding Level of Care Code Est Pt Level 4 (85063) Diagnoses Pure hypercholesterolemia E78.00 Type 2 diabetes mellitus with hyperglycemia, without long-term current use of insulin E11.65 Benign essential hypertension I10 GERD without esophagitis K21.9 Gall bladder stones K80.20 Erectile dysfunction, unspecified erectile dysfunction type N52.9 Erectile dysfunction type: unspecified Overweight (BMI 25.0-29.9) E66.3 Right-sided thoracic back pain, unspecified chronicity M54.6 Back pain location: thoracic back pain Chronicity: unspecified Back pain laterality: right Time Spent (min) 39 Assessment & Plan Assessment & Plan (1) Pure hypercholesterolemia: Code(s): E78.00 - Pure hypercholesterolemia, unspecified Category: Medical Plan: Cholesterol levels are within normal goal Reinforced low cholesterol diet Continue Rosuvastatin 10 mg QD Will recheck his labs and fasting lipids in 4 months for follow-up (2) Type 2 diabetes mellitus with hyperglycemia, without long-term current use of insulin: Code(s): E11.65 - Type 2 diabetes mellitus with hyperglycemia Category: Medical Plan: His HgbA1c has increased further to 8.5% on his labs done yesterday (was at 9.3% a few months ago) - goal is <7.0% Eat three balanced meals every day, 4 to 5 hours apart Eat at the same time every day whenever possible Include a bedtime snacks, especially if taking insulin Avoid high-sugar foods and drinks-patient reports that he was out of his Januvia for 2-1/2 weeks because the co-pay was too high Reports that he was started on saxaglipton 5 mg daily and his hoping the this is going to make a difference Continue Metformin 500 mg 2 tablets BID, and Glyburide 5 mg 1/2 tablet (2.5 mg) QD The patient reports that he does not want any changes to be made at this point because he knows that he could do it; he just has to get strict with his diet Will have him recheck his FBS and HgbA1c in 3 months for follow up (3) Benign essential hypertension: Code(s): I10 - Essential (primary) hypertension Category: Medical Plan: Reinforced low-sodium diet - goal is systolic BP of at least 120 to 130 mm or less Blood pressure within goal in office Continue Losartan-HCTZ 100-12.5 mg QD (4) GERD without esophagitis: Code(s): K21.9 - Gastro-esophageal reflux disease without esophagitis Category: Medical Plan: Do not eat meals or drink carbonated beverages within 3 hr of bedtime Decrease the amount of fried, fatty, and spicy foods to decrease gastric acid production Raise the head of the bed using 4 to 6-inch blocks, especially if nocturnal symptoms are present Lose weight if indicated; avoid tight-fitting clothing, especially around the waist Avoid foods that relax the Lower esophageal sphincter (chocolate, peppermint, high-fat foods etc.,) (5) Gall bladder stones: Code(s): K80.20 - Calculus of gallbladder without cholecystitis without obstruction Category: Medical Plan: Ultrasound of the abdomen done a couple of years ago showed (+) multiple gallstones in the gallbladder, with no evidence of obstruction Patient remains asymptomatic; will continue with observation for now Reinforced again low-fat diet to help minimize his abdominal symptoms (6) Erectile dysfunction: Code(s): N52.9 - Male erectile dysfunction, unspecified Category: Medical Qualifiers: Erectile dysfunction type: unspecified Qualified Code(s): N52.9 - Male erectile dysfunction, unspecified Plan: Continue Viagra 50 mg QD as needed (7) Overweight (BMI 25.0-29.9): Code(s): E66.3 - Overweight Category: Medical Plan: Encouraged to exercise for at least 30 minutes a day/5 days a week Healthy eating discussed. Encouraged to eat fruits/vegetables, protein-fish/baked chicken, and to avoid salty/fried foods, sweets, caffeine and carbohydrates. Encouraged to increase water intake 6-8 glasses a day (8) Back pain: Code(s): M54.9 - Dorsalgia, unspecified Category: Medical Qualifiers: Back pain location: thoracic back pain Chronicity: unspecified Back pain laterality: right Qualified Code(s): M54.6 - Pain in thoracic spine Plan: Cyclobenzaprine 10 mg p.o. at bedtime ordered. May use cool packs; may alternate cold and hot packs Plan Follow up in 3 months Orders: Orders Complete Blood Count Auto Diff 3 Months E11.65 - Type 2 diabetes mellitus with hyperglycemia, E11.9 - Type 2 diabetes mellitus without complications, E66.3 - Overweight, E78.00 - Pure hypercholesterolemia, unspecified, I10 - Essential (primary) hypertension, K21.9 - Gastro-esophageal reflux disease without esophagitis, K80.20 - Calculus of gallbladder without cholecystitis without obstruction, L57.0 - Actinic keratosis, M79.604 - Pain in right leg, N52.9 - Male erectile dysfunction, unspecified, Z00.00 - Encounter for general adult medical examination without abnormal findings Comprehensive [place]. Panel Fast 3 Months E11.65 - Type 2 diabetes mellitus with hyperglycemia, E11.9 - Type 2 diabetes mellitus without complications, E66.3 - Overweight, E78.00 - Pure hypercholesterolemia, unspecified, I10 - Essential (primary) hypertension, K21.9 - Gastro-esophageal reflux disease without esophagitis, K80.20 - Calculus of gallbladder without cholecystitis without obstruction, L57.0 - Actinic keratosis, M79.604 - Pain in right leg, N52.9 - Male erectile dysfunction, unspecified, Z00.00 - Encounter for general adult medical examination without abnormal findings Lipid Panel 3 Months E11.65 - Type 2 diabetes mellitus with hyperglycemia, E11.9 - Type 2 diabetes mellitus without complications, E66.3 - Overweight, E78.00 - Pure hypercholesterolemia, unspecified, I10 - Essential (primary) hypertension, K21.9 - Gastro-esophageal reflux disease without esophagitis, K80.20 - Calculus of gallbladder without cholecystitis without obstruction, L57.0 - Actinic keratosis, M79.604 - Pain in right leg, N52.9 - Male erectile dysfunction, unspecified, Z00.00 - Encounter for general adult medical examination without abnormal findings UA CC w/rflx Micro + Cult 3 Months E11.65 - Type 2 diabetes mellitus with hyperglycemia, E11.9 - Type 2 diabetes mellitus without complications, E66.3 - Overweight, E78.00 - Pure hypercholesterolemia, unspecified, I10 - Essential (primary) hypertension, K21.9 - Gastro-esophageal reflux disease without esophagitis, K80.20 - Calculus of gallbladder without cholecystitis without obstruction, L57.0 - Actinic keratosis, M79.604 - Pain in right leg, N52.9 - Male erectile dysfunction, unspecified, Z00.00 - Encounter for general adult medical examination without abnormal findings TSH reflex Free T4 3 Months E11.65 - Type 2 diabetes mellitus with hyperglycemia, E11.9 - Type 2 diabetes mellitus without complications, E66.3 - Overweight, E78.00 - Pure hypercholesterolemia, unspecified, I10 - Essential (primary) hypertension, K21.9 - Gastro-esophageal reflux disease without esophagitis, K80.20 - Calculus of gallbladder without cholecystitis without obstruction, L57.0 - Actinic keratosis, M79.604 - Pain in right leg, N52.9 - Male erectile dysfunction, unspecified, Z00.00 - Encounter for general adult medical examination without abnormal findings PSA,Total (Free>4and<10) 3 Months E11.65 - Type 2 diabetes mellitus with hyperglycemia, E11.9 - Type 2 diabetes mellitus without complications, E66.3 - Overweight, E78.00 - Pure hypercholesterolemia, unspecified, I10 - Essential (primary) hypertension, K21.9 - Gastro-esophageal reflux disease without esophagitis, K80.20 - Calculus of gallbladder without cholecystitis without obstruction, L57.0 - Actinic keratosis, M79.604 - Pain in right leg, N52.9 - Male erectile dysfunction, unspecified, Z00.00 - Encounter for general adult medical examination without abnormal findings ECG 12 lead EKG Today Z00.00 - Encounter for general adult medical examination without abnormal findings
== END 2024-12-25 10:23 | disposition home or self-care (01) ==
LOC: HO.HMCH 09:23
PROVIDERS: PCP Internal Medicine
DX: E78.00 Pure hypercholesterolemia, unspecified (principal); E11.65 Type 2 diabetes mellitus with hyperglycemia; I10 Essential (primary) hypertension; K21.9 Gastro-esophageal reflux disease without esophagitis; K80.20 Calculus of gallbladder without cholecystitis without obstruction; N52.9 Male erectile dysfunction, unspecified; E66.3 Overweight; M54.6 Pain in thoracic spine

== ENCOUNTER → 2024-12-25 09:22 | Outpatient (BNVA) | payer OTHER, SELFPAY | PROVIDERS: PCP Internal Medicine | DX: Z13.89 Encounter for screening for other disorder (principal) ==

== ENCOUNTER 2025-03-30 08:17 | Outpatient (REF) | payer OTHER, SELFPAY ==
[2025-03-30 08:44] LABS: MANUAL DIFF FLAG NO
[2025-03-30 09:25] LABS: Hematocrit 36.2 % (42.0-52.0); Hemoglobin 12.6 g/dl (14.0-18.0); Imm Gran Abs Auto 0.03 X10*3/uL (0.00-0.03); Imm Gran Pct Auto 0.3 % (0.0-0.4); Lymphocytes Absolute Auto 2.7 X10*3/uL (1.2-4.9); Mean Corpuscular HGB Conc 34.8 g/dl (31.0-36.0); Mean Corpuscular Hemoglobin 30.7 pg (27.0-33.0); Mean Corpuscular Volume 88.3 fL (80.0-98.0); NRBC Abs Auto 0.000 X10*3/uL (0.0-0.012); NRBC Pct Auto 0.0 /100WBC (0.0-0.2); Platelet Count 228 X10*3/uL (160-400); Red Blood Count 4.10 X10*6/uL (4.60-5.80); White Blood Count 9.7 X10*3/uL (4.8-10.8)
--- OUTSIDE RECORDS SUMMARY | 2025-03-30 09:39 | XMS_ITS | Clinical Summary ---
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 Active SITagliptin (JANUVIA) 100 MG tablet Take 100 mg by mouth daily. Active Active Problems No known active problems Immunizations Immunization Administration Dates Next Due INFLUENZA, SPLIT VIRUS, TRIVALENT W/ PRESERVATIV E IM 06/08/2015 Influenza Quadrivalent Preservative Free IM 09/2019 Influenza Quadrivalent w/ Preservative IM 2019,06/20/2018 Tdap 09/20/2011 Social History Tobacco Use Types Packs/Day Years Used Date Smoking Tobacco: Never Smokeless Tobacco: Never Education Answer Date Recorded Are you interested in more education? Not on genet e 11/11/2022 Are you concerned about learning? Not on file 11/11/2022 No 11/11/2022 No 11/11/2022 Digital Access Answer Date Recorded No 12/09/2022 No 12/09/2022 No 12/09/2022 Reliable internet access at home? Not on file 12/09/2022 Device with a working camera? Not on file Sex and Gender Information Value Date Recorded Sex Assigned at Not on file Legal Sex Male 4:54 PM EST Gender Identity Not on file Sexual Orientation Not on file Last Filed Vital Signs Vital Sign Reading Time Taken Comments Blood Pressure 135/85 03/28/2022 8:56 AM EDT Pulse 77 03/28/2022 8:56 AM EDT Temperature 36.9 C (98.5 F) 03/28/2022 8:56 AM EDT Respiratory Rate 16 03/28/2022 8:56 AM EDT Oxygen Saturation 99% 03/28/2022 8:56 AM EDT Inhaled Oxygen Concentration - - Weight 72.6 kg (160 lb) 03/28/2022 8:56 AM EDT Height 172.7 cm (5' 8 ) 03/28/2022 8:56 AM EDT Body Mass Index 24.33 03/28/2022 8:56 AM EDT Plan of Treatment Health Maintenance Due Date Last Done Comments CREATININE LEVEL 1957 LIPID PANEL 1957 POTASSIUM LEVEL 1957 DEPRESSION SCREENING 1969 HEPATITIS C SCREENING 1975 COLOGUARD 2002 COLONOSCOPY 2002 COLORECTAL CANCER SCREENING 2002 FIT TEST 2002 FOBT 2002 SIGMOIDOSCOPY 2002 VIRTUAL COLONOSCOPY 2002 PNEUMOCOCCAL VACCINES (50+ years) (1 of 1 - PCV) 2007 ZOSTER VACCINES (1 of 2) 2007 Adult Td,Tdap Booster 09/19/2021 09/20/2011 INFLUENZA VACCINE (#1) 2025 , 07/27/2019, 06/20/2018, Additional history exists COVID-19 VACCINE (3 - 2024- season) 2025 05/19/2021, 10/17/2020 RSV VACCINE (1 - 1-dose 75+ series) 01/02/2032 SMOKING STATUS SCREENING (Once After 26 Yrs) Completed 03/28/2022 HEPATITIS A VACCINES Aged Out No long er eligible based on patient's age to complete this topic HIB VACCINES Aged Out No longer eligi ble based on patient's age to complete this topic MENINGOCOCCAL VACCINES (ACWY) Aged Out No longer eligible based on patient's age to complete this topic MENINGOCOCCAL VACCINES (B) Aged Out N o longer eligible based on patient's age to complete this topic Medical Devices Not on file Insurance [facility] Care Teams Arm[employer] 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 It is not the complete legal health record.[facility]
[2025-03-30 09:45] LABS: Appearance Urine Clear; Glucose Urine UA Negative (Negative); PH 5.5 (5.0-9.0); Specific Gravity - Urine 1.010 (1.005-1.025)
[2025-03-30 10:10] LABS: Alanine Aminotransferase 20 U/L (0-40); Albumin Level 4.5 g/dL (3.5-5.0); Alkaline Phosphatase 52 U/L (39-117); Anion Gap 11 (12-20); Aspartate Amino Transferase 27 U/L (5-37); Blood Urea Nitrogen 14 mg/dL (9-16); Calcium 9.7 mg/dL (8.4-10.2); Carbon Dioxide 28 mmol/L (22-29); Chloride 103 mmol/L (96-108); Cholesterol 121 mg/dL (<200); Estimated Glomerular Filt Rate 59; HDL Cholesterol 41 mg/dL (>40); PSA,Total (Free>4and<10) 0.63 ng/mL (0.00-4.00); Potassium 4.8 mmol/L (3.3-5.1); Sodium 137 mmol/L (135-145); Total Protein 7.5 g/dL (6.5-8.0); Triglycerides 114 mg/dL (<150)
== END 2025-03-30 08:18 | disposition home or self-care (01) ==
LOC: HO.LAB 08:17
DX: Z00.00 Encounter for general adult medical examination without abnormal findings (principal); Z12.5 Encounter for screening for malignant neoplasm of prostate; E11.65 Type 2 diabetes mellitus with hyperglycemia; K21.9 Gastro-esophageal reflux disease without esophagitis; E78.00 Pure hypercholesterolemia, unspecified; I10 Essential (primary) hypertension; M79.604 Pain in right leg; L57.0 Actinic keratosis; E66.3 Overweight; N52.9 Male erectile dysfunction, unspecified; K80.20 Calculus of gallbladder without cholecystitis without obstruction
CPT/HCPCS: 36415; 80053; 80061; 81003; 84153; 84443; 85025

== ENCOUNTER 2025-03-31 14:45 | Outpatient (AMB) | payer OTHER, SELFPAY ==
[2025-03-31 15:11] VITALS: BP 120/80; PULSE 78; O2SAT 99; BMI 29.3
--- NOTE | 2025-03-31 15:11 | A.OFFPC_ITS ---
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 Accompanied by: Self / Same As Patient Allergies morphine (MORPHINE) Adverse Reaction (Intermediate, Verified 03/31/25 15:44) NAUSEA lisinopril (LISINOPRIL) Adverse Reaction (Mild, Verified 03/31/25 15:44) COUGH metformin (Glucophage) Adverse Reaction (Unknown, Verified 03/31/25 15:44) Diarrhea Medication List - Last Reconciled 03/31/25 by Jorge Luis Nava MD blood sugar diagnostic (FreeStyle Lite Strips) As directed once a day glyburide 5 mg PO DAILY 90 days lancets (FreeStyle Lancets) As directed once a day losartan-hydrochlorothiazide 100-12.5 mg 1 tab PO DAILY metformin 1,000 mg (2 x 500 mg) PO BID rosuvastatin 10 mg PO DAILY saxagliptin 5 mg PO DAILY sildenafil (Viagra) 50 mg PO DAILY PRN 90 days Tobacco use date assessed: 03/31/25 Fall risk assessment: 1 Fall in past year Last assessed Fall Risk: 03/31/25 Dental Screening Dental Screen Date: 03/31/25 Did you have a dental visit in the last 12 months?: Yes Did you have a dental problem in the last 6 months where you did not have access to dental care?: No Was dental information given to patient?: Patient has dentist HPI follow up HPI Details Patient comes in today for his follow-up visit - he was last seen by me in May 2024 as he was seen by one of our CREDIT CHECKER at his last 2 visits States that he feels okay He denies any headaches or dizziness Denies any chest pains, no increased shortness of breath No nausea/vomiting, no abdominal pain No change in bowel habits noted He had his follow-up labs done yesterday - to discuss his results [facility] Medical History Type 2 diabetes mellitus with hyperglycemia, without long-term current use of insulin Shingles History of panic attacks History of anxiety Overweight (BMI 25.0-29.9) Family history of ovarian cancer History of adenomatous polyp of colon Tubular adenoma of colon Hip pain Elbow pain Shoulder pain Obesity (BMI 30-39.9) Erectile dysfunction Gall bladder stones GERD without esophagitis Pure hypercholesterolemia Benign essential hypertension Type 2 diabetes mellitus without complication, with no history of insulin use Surgical History History of colonoscopy History of bilateral cataract extraction History of shoulder surgery Family History Father Cirrhosis Cancer Mother Ovarian cancer Social History Housing: House Are you a primary manager progressive care to a significant other at home: No Do you presently have visiting nurse or other home services: No Alcohol intake: current Alcohol intake frequency: holidays/special occasions only Alcohol type: beer Patient Tobacco Use Status: Never used Tobacco e-Cigarette/Vaping Use: Never Used Second Hand Smoke Exposure: No service: Yes ([employer]) Current occupational status: employed Current occupation: [employer] Current occupational exposures/hazards: No Cognitive needs: No Hearing needs: No Vision needs: No Questionnaire Thrive Questionnaire Date Thrive assessed: 12/21/24 I am a: Patient What is your living situation today?: I have a steady place to live Within the past 12 months, did the food you bought not last and you didn't have the money to get more?: I choose not to answer this question Within the past 12 months, did you worry whether your food would run out before you got money to buy more?: I choose not to answer this question Do you have trouble paying for medicines?: No Do you have trouble getting transportation to medical appointments?: No Do you have trouble paying your heating and electricity bill?: No Do you have trouble taking care of your child, family member or friend?: No Do you have trouble with day-to-day activities such as bathing, preparing meals, shopping, managing finances, etc.?: No Are you currently unemployed and looking for a job?: No Are you interested in more education?: No Please select the resources that you would like help with: None Currently or been in a relationship where the following occur: No concerns reported THRIVE Score: 0 AUDIT C Alcohol Use Questionnaire (AUDIT-C) 1. How often do you have a drink containing alcohol?: Monthly or less 2. How many drinks containing alcohol do you have on a typical day when you are drinking?: 1 or 2 3. How often do you have six or more drinks on one occasion?: Never Total Score: 1 Score Reviewed/Action Taken: Yes BRENNA-7 AMB Questionnaire BRENNA-7 Date BRENNA - 7 assessed: 12/25/24 Source: Developed by Drs. Armando Hairston, Domenica Hurd, Raul Zamarripa and colleagues, with an educational gillian from [employer]. Review of Systems Const Denies chills, Denies fatigue, Denies fever(s) and Denies headache(s) ENT Denies dysphagia, Denies dizziness, Denies otalgia, Denies headache(s), Denies neck pain, Denies odynophagia and Denies sore throat Card Denies chest pain, Denies palpitations and Denies dyspnea Resp Denies chest congestion, Denies cough and Denies dyspnea GI Denies abdominal pain, Denies constipation, Denies dysphagia, Denies heartburn, Denies diarrhea, Denies nausea, Denies odynophagia and Denies vomiting Denies difficulty urinating, Reports erectile dysfunction, Denies dysuria, Denies nocturia and Denies urinary frequency Musc Denies back pain, Reports arthralgias (on and off in the right shoulder, mostly mild) and Denies neck pain Skin/Breast Denies rash Neuro Denies dizziness and Denies headache(s) Endo Denies fatigue and Denies palpitations Physical exam (Primary Care) Vital Signs: Last Vital Signs Pulse 78 03/31/25 15:11 BP 120/80 03/31/25 15:11 Pulse Ox 99 03/31/25 15:11 Oxygen Delivery Method Room Air 03/31/25 15:11 BMI result Body Mass Index 29.3 Tobacco/Smoking Status: Tobacco use Status Tobacco use date assessed 03/31/25 03/31/25 15:23 Patient Tobacco Use Status Never used Tobacco 03/31/25 15:23 e-Cigarette/Vaping Use Never Used 03/31/25 15:23 Thrive Assessment: Date of Thrive Assessment Date Thrive assessed 12/21/24 03/31/25 15:23 Currently or been in a relationship where the following occur: No concerns reported Const General: no acute distress and alert HENMT Ears: TM's normal bilaterally and EAC's normal Throat: Yes posterior oropharynx normal and Yes tonsils normal (no TP congestion) Neck Neck: Yes supple and No lymphadenopathy Thyroid: Thyroid normal Resp Auscultation: clear to auscultation bilaterally, no rales and no wheezes Cardio Rate: regular rate Rhythm: regular rhythm Heart sounds: no murmurs GI Palpation (GI): Soft to palpation and nontender Auscultation: normal bowel sounds General: Yes no CVA tenderness Back/Spine/Pelvis Back: no CVA tenderness Thoracic/Lumbar Spine: No lumbar spinal tenderness Skin Rashes: no rashes Extrem General: Yes no clubbing, cyanosis or edema Results AMB Hemoglobin A1c AMB Hemoglobin A1c 8.8 % Last Edit by FERMIN Antonio on 03/31/25 16 :06 Results Reviewed Results Reviewed: Laboratory Tests 03/30/25 03/30/25 08:41 08:43 WBC 9.7 Hgb 12.6 L Hct 36.2 L Plt Count 228 Sodium 137 Potassium 4.8 Creatinine 1.22 Estimated GFR 59 Fasting Glucose 160 H Calcium 9.7 AST 27 ALT 20 Triglycerides 114 Cholesterol 121 LDL Cholesterol, Calc 58 HDL Cholesterol 41 Total PSA 0.63 TSH 0.66 Ur Specific Welling 1.010 Urine Protein Negative Urine Glucose (UA) Negative Urine Blood Negative Urine Nitrite Negative Ur Leukocyte Esterase Negative Coding Diagnoses Pure hypercholesterolemia E78.00 Type 2 diabetes mellitus with hyperglycemia, without long-term current use of insulin E11.65 Benign essential hypertension I10 GERD without esophagitis K21.9 Gall bladder stones K80.20 Erectile dysfunction, unspecified erectile dysfunction type N52.9 Erectile dysfunction type: unspecified Overweight (BMI 25.0-29.9) E66.3 Assessment & Plan Assessment & Plan (1) Pure hypercholesterolemia: Code(s): E78.00 - Pure hypercholesterolemia, unspecified Category: Medical Plan: Results of his labs done yesterday reviewed and discussed with patient Reinforced low cholesterol diet Continue Rosuvastatin 10 mg QD Will recheck his labs and fasting lipids in 4 months for follow-up (2) Type 2 diabetes mellitus with hyperglycemia, without long-term current use of insulin: Code(s): E11.65 - Type 2 diabetes mellitus with hyperglycemia Category: Medical Plan: His HgbA1c has increased further to 9.1% on his labs done yesterday (was at 8.3% a few months ago) - goal is <7.0% Reinforced diabetic diet - patient again admits to poor compliance with his diet over the past few months Continue Metformin 500 mg 2 tablets BID, Januvia 100 mg QD and Glyburide 5 mg 1/2 tablet (2.5 mg) QD Have advised that at this point, there is really not much else left to start him on medication-curiel other than Jardiance or Farxiga or the injectable GLP-1s like Ozempic or Trulicity Patient asked for one last try to get himself back on track and to improve his diet and glycemic control and will agree to have his meds changed or added to at his next appointment if he still is not able to get himself better than he is now and closer to goal He admits to drinking diet Coke almost on a daily basis and will give that up now Will have him recheck his FBS and HgbA1c in 4 months for follow up (3) Benign essential hypertension: Code(s): I10 - Essential (primary) hypertension Category: Medical Plan: Reinforced low-sodium diet - goal is systolic BP of at least 120 to 130 mm or less Patient's average blood pressure is around 128/68 mm, per his BP log for the past few months (copy scanned into chart) Continue Losartan-HCTZ 100-12.5 mg QD (4) GERD without esophagitis: Code(s): K21.9 - Gastro-esophageal reflux disease without esophagitis Category: Medical Plan: Dietary restrictions reinforced (5) Gall bladder stones: Code(s): K80.20 - Calculus of gallbladder without cholecystitis without obstruction Category: Medical Plan: Ultrasound of the abdomen done a couple of years ago showed (+) multiple gallstones in the gallbladder, with no evidence of obstruction Patient remains asymptomatic; will continue with observation for now Reinforced again low-fat diet to help minimize his abdominal symptoms (6) Erectile dysfunction: Code(s): N52.9 - Male erectile dysfunction, unspecified Category: Medical Qualifiers: Erectile dysfunction type: unspecified Qualified Code(s): N52.9 - Male erectile dysfunction, unspecified Plan: Continue Viagra 50 mg QD as needed (7) Overweight (BMI 25.0-29.9): Code(s): E66.3 - Overweight Category: Medical Plan: Reinforced diet/exercise as tolerated/lose weight Plan Follow up in 4 months Orders: Orders AMB Hemoglobin A1c Today Z13.9 - Encounter for screening, unspecified Hemoglobin A1c 4 Months E11.9 - Type 2 diabetes mellitus without complications, Z00.00 - Encounter for general adult medical examination without abnormal findings Lipid Panel 4 Months E78.00 - Pure hypercholesterolemia, unspecified, Z00.00 - Encounter for general adult medical examination without abnormal findings TSH reflex Free T4 4 Months E78.00 - Pure hypercholesterolemia, unspecified Vitamin B12 and Folate 4 Months E53.8 - Deficiency of other specified B group vitamins Complete Blood Count Auto Diff 4 Months D64.9 - Anemia, unspecified, Z00.00 - Encounter for general adult medical examination without abnormal findings Comprehensive [place]. Panel Fast 4 Months E78.00 - Pure hypercholesterolemia, unspecified, Z00.00 - Encounter for general adult medical examination without abnormal findings Microalbumin, Random (w Creat) 4 Months E11.9 - Type 2 diabetes mellitus without complications, Z00.00 - Encounter for general adult medical examination without abnormal findings UA CC w/rflx Micro + Cult 4 Months R30.0 - Dysuria Vitamin D 25-OH Total 4 Months E55.9 - Vitamin D deficiency, unspecified
--- OUTSIDE RECORDS SUMMARY | 2025-03-31 18:21 | XMS_ITS | Clinical Summary ---
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 Supervisor Name Role Phone Jorge Luis Nava MD Primary Care Provider [phone] Allergies No known active allergies Medications metFORMIN [...] [facility] Care Teams Bailer Tenders Supervisor Relationship Specialty Start Date End Date Jorge Luis Nava MD [address] [place] [address] [place] [id number] PCP - General Internal Medicine 03/28/22 Additional Source Comments The information contained in this document represents components of the legal health record. It is not the complete legal health record.[facility]
== END 2025-03-31 16:08 | disposition home or self-care (01) ==
PROVIDERS: Visit Provider Internal Medicine
DX: Z13.9 Encounter for screening, unspecified (principal)

== ENCOUNTER → 2025-03-31 14:45 | Outpatient (BNVA) | payer OTHER, SELFPAY | PROVIDERS: Visit Provider Internal Medicine | DX: E11.65 Type 2 diabetes mellitus with hyperglycemia (principal); E78.00 Pure hypercholesterolemia, unspecified; I10 Essential (primary) hypertension; K21.9 Gastro-esophageal reflux disease without esophagitis; K80.20 Calculus of gallbladder without cholecystitis without obstruction; N52.9 Male erectile dysfunction, unspecified; E66.3 Overweight; Z68.29 Body mass index [BMI] 29.0-29.9, adult | CPT/HCPCS: 83036 ==